=== PATIENT | male | born 1970 | race Hispanic/Latino ===

== ENCOUNTER 2018-06-28 17:14 | Inpatient (IN) | payer MEDICARE, MEDICAID ==
[2018-06-28 17:38] VITALS: BMI 32.2
--- NOTE | 2018-06-28 18:30 | ED PDOC ---
Arrival/HPI - General Historian: Patient <Myrtle Amato - Last Filed: 06/28/18 20:53> <Waqas Hoang - Last Filed: 06/29/18 05:41> - General Chief Complaint: Psychiatric Evaluation Time Seen by Provider: 06/28/18 17:16 - History of Present Illness Narrative History of Present Illness (Text): 06/28/18 18:27 47yr old male with hx of depression and schizophrenia presents today with suicidal ideations. Patient states he has been feeling very depressed for the past few days. Patient states that he is hearing voices that are telling him to take pills to kill himself. Patient states he has been noncompliant with his medications he says his medications make him drowsy and a gives him issues if he over sleeps while in the senior care. Patient denies headaches dizziness or weakness. Denies any trauma or injury. Denies chest pain or shortness of breath. No other complaints. (Myrtle Amato) Past Medical History - Provider Review Nursing Documentation Reviewed: Yes - Travel History Have you recently traveled outside [place] w/in the past 3 mons?: No - Infectious Disease Hx of Infectious Diseases: None - Tetanus Immunization Tetanus Immunization: Unknown - Cardiac Hx Cardiac Arrhythmia: Yes - Pulmonary Hx Bronchitis: Yes - Neurological Hx Seizures: No - HEENT Hx HEENT Disorder: No - Renal Hx Renal Disorder: No - Endocrine/Metabolic Hx Endocrine Disorders: No - Hematological/Oncological Hx Blood Disorders: No - Integumentary Hx Dermatological Disorder: No - Musculoskeletal/Rheumatological Hx Musculoskeletal Disorders: No - Gastrointestinal Hx Gastrointestinal Disorders: No - Genitourinary/Gynecological Hx Sexually Transmitted Diseases: No - Psychiatric Hx Depression: Yes Hx Substance Use: No - Surgical History Other/Comment: jaw surgery 1992 - Anesthesia Hx Anesthesia: No Hx Anesthesia Reactions: No Hx Malignant Hyperthermia: No - Suicidal Assessment Feels Threatened In Home Enviroment: No <Myrtle Amato - Last Filed: 06/28/18 20:53> Family/Social History - Physician Review Nursing Documentation Reviewed: Yes Family/Social History: Unknown Family HX Smoking Status: Heavy Smoker > 10 Cigarettes Daily Hx Alcohol Use: Yes Frequency of alcohol use: Socially Amount per day: 5 Hx Substance Use: No Hx Substance Use Treatment: No <Myrtle Amato - Last Filed: 06/28/18 20:53> Allergies/Home Meds <Myrtle Amato - Last Filed: 06/28/18 20:53> <Waqas Hoang - Last Filed: 06/29/18 05:41> Allergies/Adverse Reactions: Allergies No Known Allergies Allergy (Verified 05/24/18 23:43) Review of Systems - Review of Systems Constitutional: absent: Fatigue, Fevers Respiratory: absent: SOB, Cough Cardiovascular: absent: Chest Pain, Palpitations Gastrointestinal: absent: Abdominal Pain, Nausea, Vomiting Genitourinary Male: absent: Dysuria Musculoskeletal: absent: Arthralgias, Back Pain, Neck Pain Skin: absent: Rash, Pruritis Neurological: absent: Headache, Dizziness Psychiatric: Depression, Suicidal Ideation. absent: Anxiety <Myrtle Amato - Last Filed: 06/28/18 20:53> Physical Exam Vital Signs Reviewed: Yes Temperature: Afebrile Blood Pressure: Normal Pulse: Tachycardic Respiratory Rate: Normal Appearance: Positive for: Well-Appearing, Non-Toxic, Comfortable Pain Distress: None Mental Status: Positive for: Alert and Oriented X 3 - Systems Exam Head: Present: Atraumatic Mouth: Present: Moist Mucous Membranes Neck: Present: Normal Range of Motion Respiratory/Chest: Present: Clear to Auscultation, Good Air Exchange. No: Respiratory Distress, Accessory Muscle Use Cardiovascular: Present: Regular Rate and Rhythm, Normal S1, S2. No: Murmurs Abdomen: No: Tenderness Upper Extremity: Present: Normal ROM Lower Extremity: Present: Normal ROM. No: CALF TENDERNESS Neurological: Present: GCS=15, Speech Normal Skin: Present: Warm, Dry, Normal Color Psychiatric: Present: Alert, Oriented x 3 <Myrtle Amato - Last Filed: 06/28/18 20:53> Vital Signs Temp Pulse Resp BP Pulse Ox 06/29/18 01:52 97.7 F 83 18 130/90 96 06/28/18 19:11 98 F 98 H 18 117/75 100 06/28/18 17:51 98.9 F 111 H 18 121/64 95 Medical Decision Making <Myrtle Amato - Last Filed: 06/28/18 20:53> <Waqas Hoang - Last Filed: 06/29/18 05:41> ED Course and Treatment: 06/28/18 18:30 Patient is nontoxic well-appearing in no distress c/o depression and SI. pt placed on 1;1 CBC WNL CMP glucose; 150 Tylenol WNL Salicylate WNL Alcohol level 86 Urine drug screen: wnl UA; wnl cxr: wnl ekg sinus tachycardia at 107 bpm normal axis normal intervals no ST elevations pt is medically cleared for PES evaluation Patient was seen and evaluated by PES screener: tristian pt reassessment; pt non toxic well appearing; resting comfortably; vitals are stable. In the ER pt is stating that he will kill himself. case signed out to dr. hoang pending psychiatric re-evaluation and disposition. (Myrtle Amato) 06/28/18 21:00 Pt re-evaluated by PES screener Tristian, pt to remain in ER until the morning pending [id number] evaluation by Dr. Tejeda. 06/29/18 07:00 Case endorsed to /pending evaluation by the psychiatrist/final disposition (Waqas Hoang) - Lab Interpretations Lab Results: 06/28/18 18:20 06/28/18 18:20 Lab Results 06/28/18 19:20: Urine Opiates Screen Negative, Urine Methadone Screen Negative, Ur Barbiturates Screen Negative, Ur Phencyclidine Scrn Negative, Ur Amphetamines Screen Negative, U Benzodiazepines Scrn Negative, U Oth Cocaine Metabols Negative, U Cannabinoids Screen Negative 06/28/18 19:20: Urine Color Yellow, Urine Appearance Clear, Urine pH 6.0, Ur Specific [place] 1.020, Urine Protein Negative, Urine Glucose (UA) Negative, Urine Ketones Negative, Urine Blood Negative, Urine Nitrate Negative, Urine Bilirubin Negative, Urine Urobilinogen 0.2, Ur Leukocyte Esterase Negative 06/28/18 18:20: Alcohol, Quantitative 86 H 06/28/18 18:20: Salicylates < 1 L, Acetaminophen < 10.0 L 06/28/18 18:20: Sodium 142, Potassium 3.7, Chloride 107, Carbon Dioxide 23, Anion Gap 16, BUN 12, Creatinine 0.7 L, Est GFR ( Amer) > 60, Est GFR ( Non-Af Amer) > 60, Random Glucose 150 H, Calcium 9.1, Total Bilirubin 0.2, AST 22, ALT 41, Alkaline Phosphatase 43, Total Protein 6.7, Albumin 3.8, Globulin 2.9, Albumin/Globulin Ratio 1.3 06/28/18 18:20: WBC 9.1 D, RBC 4.39, Hgb 14.1, Hct 39.6 L, MCV 90.2, MCH 32.1, MCHC 35.6, RDW 13.0, Plt Count 223, MPV 8.7, Gran % 66.9, Lymph % (Auto) 24.3, [place] % (Auto) 5.3, Eos % (Auto) 2.7, Baso % (Auto) 0.8, Gran # 6.12, Lymph # ( Auto) 2.2, [place] # (Auto) 0.5, Eos # (Auto) 0.3, Baso # (Auto) 0.07 - RAD Interpretation Radiology Orders: 06/28/18 18:18 CHEST PORTABLE [RAD] Stat - PA / AGENT TELEGRAPHER / Resident Statement /DO has reviewed & agrees with the documentation as recorded. / has examined the patient and agrees with the treatment plan. <Waqas Hoang - Last Filed: 06/29/18 05:41> Disposition/Present on Arrival - Present on Arrival Any Indicators Present on Arrival: No History of DVT/PE: No History of Uncontrolled Diabetes: No Urinary Catheter: No History of Decub. Ulcer: No History Surgical Site Infection Following: None <Myrtle Amato - Last Filed: 06/28/18 20:53> - Present on Arrival Any Indicators Present on Arrival: No - Disposition Have Diagnosis and Disposition been Completed?: No Disposition Time: 07:00 <Waqas Hoang - Last Filed: 06/29/18 05:41> - Disposition Diagnosis: Depression Condition: STABLE Referrals: Brenda Dawson [Primary Care Provider] - Follow up with primary Forms: [employer] ([place]an)
[2018-06-28 18:31] LABS: BASO # 0.07 K/mm3 (0.0-2.0); BASO % 0.8 % (0.0-3.0); EOS # 0.3 (0.0-0.7); EOS % 2.7 % (1.5-5.0); GRAN # 6.12 (1.4-6.5); GRAN % 66.9 % (50.0-68.0); HEMOGLOBIN 14.1 g/dL (14.0-18.0); LYMPH # 2.2 (1.2-3.4); LYMPH % 24.3 % (22.0-35.0); MEAN CELL VOLUME 90.2 fl (80.0-105.0); MEAN CORPUSCULAR HEMOGLOBIN 32.1 pg (25.0-35.0); MEAN CORPUSCULAR HGB CONC 35.6 g/dl (31.0-37.0); MEAN PLATELET VOLUME 8.7 fl (7.0-11.0); MONO # 0.5 (0.1-0.6); MONO % 5.3 % (1.0-6.0); RBC 4.39 10^6/uL (3.5-6.1); WHITE BLOOD COUNT 9.1 10^3/ul (4.5-11.0)
[2018-06-28 18:59] LABS: ACETAMINOPHEN < 10.0 ug/ml (10.0-20.0); SALICYLATE < 1 mg/dL (2.0-20.0)
[2018-06-28 19:03] LABS: ALB/GLOB RATIO 1.3 (1.1-1.8); ALBUMIN 3.8 g/dL (3.0-4.8); ALT/SGPT 41 U/L (7-56); AST/SGOT 22 U/L (17-59); BLOOD UREA NITROGEN 12 mg/dL (7-21); CALCIUM 9.1 mg/dL (8.4-10.5); GFR AFRICAN-AMERICAN > 60; GFR NON-AFRICAN AMERICAN > 60
[2018-06-28 19:44] LABS: URINE BILIRUBIN NEGATIVE (NEGATIVE); URINE BLOOD NEGATIVE (NEGATIVE); URINE GLUCOSE (UA) NEGATIVE (NEGATIVE); URINE LEUKOCYTE ESTERASE NEGATIVE Leu/uL (NEGATIVE); URINE PROTEIN NEGATIVE mg/dL (<30 mg/dL); URINE UROBILINOGEN 0.2 E.U./dL (<1 E.U./dL)
[2018-06-28 19:45] LABS: URINE APPEARANCE CLEAR (CLEAR); URINE COLOR YELLOW (YELLOW)
[2018-06-28 20:16] LABS: BARBITURATES, UR NEGATIVE (NEGATIVE); BENZODIAZEPINES, UR NEGATIVE (NEGATIVE); OPIATES, UR NEGATIVE (NEGATIVE); PHENCYCLIDINE, UR NEGATIVE (NEGATIVE)
--- NOTE | 2018-06-29 07:12 | ED PDOC ---
Physical Exam Vital Signs Reviewed: Yes Vital Signs Temp Pulse Resp BP Pulse Ox 06/29/18 04:39 98.2 F 80 18 120/72 98 06/29/18 01:52 97.7 F 83 18 130/90 96 06/28/18 19:11 98 F 98 H 18 117/75 100 06/28/18 17:51 98.9 F 111 H 18 121/64 95 Temperature: Afebrile Blood Pressure: Normal Pulse: Tachycardic Respiratory Rate: Normal Appearance: Positive for: Well-Appearing, Non-Toxic, Comfortable Pain Distress: None Mental Status: Positive for: Alert and Oriented X 3 - Systems Exam Head: Present: Atraumatic, Normocephalic Pupils: Present: PERRL Extroacular Muscles: Present: EOMI Conjunctiva: Present: Normal Neck: Present: Normal Range of Motion Respiratory/Chest: Present: Clear to Auscultation, Good Air Exchange. No: Respiratory Distress, Accessory Muscle Use Cardiovascular: Present: Regular Rate and Rhythm, Normal S1, S2. No: Murmurs Abdomen: No: Tenderness, Distention, Peritoneal Signs Back: Present: Normal Inspection Upper Extremity: Present: Normal Inspection. No: Cyanosis, Edema Lower Extremity: Present: Normal Inspection. No: Edema Neurological: Present: GCS=15, CN II-XII Intact, Speech Normal Skin: Present: Warm, Dry, Normal Color. No: Rashes Psychiatric: Present: Alert, Oriented x 3, Normal Insight, Normal Concentration Medical Decision Making ED Course and Treatment: 06/29/18 07:11 Case endorsed to me by Dr. Porras for pending [id number] evaluation by Dr. Tejeda and final disposition. Patient s a 47 year old male who presented to the Emergency department earlier today expressing suicidal ideation. Patient is currently resting in bed in no acute distress. Patient presents no new complaints. 06/29/18 07:40 Dr. Pack evaluated patient at bedside and believes patient needs admission. Patient will be admitted to the hospital under Dr. Tejeda's service. - Lab Interpretations Lab Results: 06/28/18 18:20 06/28/18 18:20 Lab Results 06/28/18 19:20: Urine Opiates Screen Negative, Urine Methadone Screen Negative, Ur Barbiturates Screen Negative, Ur Phencyclidine Scrn Negative, Ur Amphetamines Screen Negative, U Benzodiazepines Scrn Negative, U Oth Cocaine Metabols Negative, U Cannabinoids Screen Negative 06/28/18 19:20: Urine Color Yellow, Urine Appearance Clear, Urine pH 6.0, Ur Specific [place] 1.020, Urine Protein Negative, Urine Glucose (UA) Negative, Urine Ketones Negative, Urine Blood Negative, Urine Nitrate Negative, Urine Bilirubin Negative, Urine Urobilinogen 0.2, Ur Leukocyte Esterase Negative 06/28/18 18:20: Alcohol, Quantitative 86 H 06/28/18 18:20: Salicylates < 1 L, Acetaminophen < 10.0 L 06/28/18 18:20: Sodium 142, Potassium 3.7, Chloride 107, Carbon Dioxide 23, Anion Gap 16, BUN 12, Creatinine 0.7 L, Est GFR ( Amer) > 60, Est GFR ( Non-Af Amer) > 60, Random Glucose 150 H, Calcium 9.1, Total Bilirubin 0.2, AST 22, ALT 41, Alkaline Phosphatase 43, Total Protein 6.7, Albumin 3.8, Globulin 2.9, Albumin/Globulin Ratio 1.3 06/28/18 18:20: WBC 9.1 D, RBC 4.39, Hgb 14.1, Hct 39.6 L, MCV 90.2, MCH 32.1, MCHC 35.6, RDW 13.0, Plt Count 223, MPV 8.7, Gran % 66.9, Lymph % (Auto) 24.3, [place] % (Auto) 5.3, Eos % (Auto) 2.7, Baso % (Auto) 0.8, Gran # 6.12, Lymph # ( Auto) 2.2, [place] # (Auto) 0.5, Eos # (Auto) 0.3, Baso # (Auto) 0.07 - RAD Interpretation Radiology Orders: 06/28/18 18:18 CHEST PORTABLE [RAD] Stat - Scribe Statement The provider has reviewed the documentation as recorded by the Scribpeggy Raza. All medical record entries made by the Scribe were at my direction and personally dictated by me. I have reviewed the chart and agree that the record accurately reflects my personal performance of the history, physical exam, medical decision making, and the department course for this patient. I have also personally directed, reviewed, and agree with the discharge instructions and disposition. Disposition/Present on Arrival - Present on Arrival Any Indicators Present on Arrival: No History of DVT/PE: No History of Uncontrolled Diabetes: No Urinary Catheter: No History of Decub. Ulcer: No History Surgical Site Infection Following: None - Disposition Have Diagnosis and Disposition been Completed?: Yes Diagnosis: Depression Disposition Time: 04:00 Patient Problems: Current Active Problems Problem Status Onset Depression Acute Condition: STABLE
[2018-06-29 10:05] VITALS: O2SAT 96
[2018-06-29] MEDS ORDERED: Alum-Mag Hydrox-Simethicone Susp (30 mL) PO PRN (11:13)
[2018-06-29] MEDS: buPROPion 150 mg/24 Hours XL Tab PO SCH (12:05)
--- NOTE | 2018-06-29 12:29 | RAD ---
Date of service: 06/28/2018 HISTORY: pes eval COMPARISON: Comparison chest 11/22/2016 FINDINGS: LUNGS: No active pulmonary disease. PLEURA: No significant pleural effusion identified, no pneumothorax apparent. CARDIOVASCULAR: Heart size normal. . OSSEOUS STRUCTURES: No significant abnormalities. VISUALIZED UPPER ABDOMEN: Normal. OTHER FINDINGS: None. IMPRESSION: No active disease.
[2018-06-29] MEDS ORDERED: Magnesium Hydroxide Susp 30 ml UD PO PRN (13:34)
--- NOTE | 2018-06-29 15:56 | PCM.BM ---
<William Garcia - Last Filed: 06/29/18 15:53> Treatment Plan Problems - Problems identified on initial assessmt Medication Nonadherence Date Initiated: 06/29/18 Time Initiated: 12:00 Assessment reference: NA Status: Active Priority: 1 Auditory Hallucinations Date Initiated: 06/29/18 Time Initiated: 12:00 Assessment reference: NA Status: Active Priority: 2 Hopelessness/Helplessness Date Initiated: 06/29/18 Time Initiated: 12:00 Assessment reference: NA Status: Active Priority: 3 Feelings of Worthlessness Date Initiated: 06/29/18 Time Initiated: 12:00 Assessment reference: NA Status: Active Priority: 4 Ineffective Coping Date Initiated: 06/29/18 Time Initiated: 12:00 Assessment reference: NA Status: Active Priority: 5 Treatment assets and liabiliti Patient Assests: cooperative (pt. provided information about his illness.), insightful, ADL independent, physically healthy, negotiates basic needs Patient Liabilities: financial problems, poor support system - Milieu Protocol Maintain good personal hygiene: daily Encourage regular showers, every shift Remind patient to perform daily oral care, every shift Assist patient to perform ADL's Maintain personal safety: every shift Educate patient to report safety concerns to staff, every shift Monitor environment for contraband/sharps Medication safety: Monitor for expected outcome, potential side effects: every shift, Assess barriers to learning: every shift, Assess readiness for medication education: every shift Family Contact Family involvement: Family/SO is involved Family contact: Patient agrees to contact - Goals for Treatment Patient goals for treatment: "Try to get more stabilized and get rid of voices- stable mind with peace. Discharge/Continuing Care - Education Needs Education Needs: Patient Medication, Patient Diagnosis/Disease Process, Patient Coping Skills, Patient Anger Management skills, Patient Placement options, Patient Community resources, Patient Activities of Daily Living, Patient Pain, Patient Nutrition, Patient Uses of Medical Equipment, Patient Health Practices/ Safety, Patient Personal Hygiene/Grooming, Patient Aftercare Safety Plan - Discharge Discharge Criteria: Tolerates medication w/o severe side effects <Keke Pack - Last Filed: 06/30/18 12:21> - Diagnosis (1) Depression Status: Acute Interventions: 06/30/18 12:22 group, milieu and supportive tx * Seroquel 50 increased to 25 for mood control and reported AH * Wellbutrin XL 150 mg daily for depression (2) Schizo-affective psychosis Status: Acute Interventions: group, milieu and supportive tx * Seroquel increased to for mood control and reported AH * Wellbutrin XL 150 mg daily for depression 06/30/18 12:22 <Arlette Patricia - Last Filed: 06/30/18 16:49> Family Contact Family involvement: Famliy/SO not involved <Deanna Stoll - Last Filed: 07/01/18 10:13>
--- NOTE | 2018-06-29 16:22 | CARD ---
APPROVED REPORT Date of service: 06/28/2018 EKG Measurement Heart [id number] <Conclusion> Sinus tachycardia Otherwise normal ECG
--- NOTE | 2018-06-29 18:26 | PCM.FALL ---
<Karan Ribera - Last Filed: 06/29/18 18:23> Post Fall Progress Note - Post Fall Fall Date: 06/29/18 Fall Time: 05:00 Description of Fall: Patient was using restroom when he slipped because of water on the floor from the toilet. Patient fell on buttock, did not hit head. Patient denied any dizziness, or "blacking out" prior to fall or loss of balance. Patient did not have any LOC, focal deficits, chest pain, SOB, or any other complaints. Patient has slight lower back tenderness. He was able to move all extremities without any issues with sensation in tact throughout as well. Patient was also able to have full Range of motion in neck. Patient was able to get up off the floor and lay back in his bed without any issue. - Post Fall Exam Vital Sign: Temp Pulse Resp BP Pulse Ox 98.9 F 84 20 113/68 96 06/29/18 10:15 06/29/18 15:00 06/29/18 15:00 06/29/18 15:00 06/29/18 10:04 Skull Exam: Negative for: Scalp wound, Scalp hematoma, Scalp depression, Ridge in skull Eye Exam: Positive for: Pupils equal, Pupils reactive Ear Exam: Negative for: Discharge, Bleeding Nose Exam: Negative for: Discharge, Bleeding Skin Exam: Negative for: Lacerations, Bruising Mouth Exam: Negative for: Tongue bitten, Teeth dislodge Neck Exam: Negative for: Tenderness, Tingling, Weakness Spinal Exam: Positive for: Tenderness. Negative for: Tingling, Weakness Chest Exam: Negative for: Difficulty breathing Abdomen Exam: Negative for: Tenderness Pelvic Exam: Negative for: Tenderness Arm Exam: Negative for: Deformity Leg Exam: Negative for: Deformity Impression/Plan: Plan -motrin for pain control -xray of lumbar spine -will continue to monitor <Wilmer Padgett - Last Filed: 06/29/18 18:37> Post Fall Progress Note - Post Fall Exam Vital Sign: Temp Pulse Resp BP Pulse Ox 98.9 F 84 20 113/68 96 06/29/18 10:15 06/29/18 15:00 06/29/18 15:00 06/29/18 15:00 06/29/18 10:04 Attending/Attestation - Attestation I have personally seen and examined this patient.: Yes I have fully participated in the care of the patient.: Yes I have reviewed all pertinent clinical information, including history, physical exam and plan: Yes Notes (Text): 06/29/18 18:36 attending note; Patient seen and examined with resident. Status post fall. No obvious injuries. Slight lower back pain. X-ray ordered. Patient is alert and awake. Able to ambulate without difficulty. Nursing staff informed to monitor.
[2018-06-30 07:37] LABS: GLUCOSE,FASTING 99 mg/dL (65-110); HDL CHOLESTEROL 39 mg/dL (29-60)
[2018-06-30 07:48] LABS: LDL CHOLESTEROL 111 mg/dL (0-129)
[2018-06-30 07:54] LABS: FREE T4 0.75 ng/dL (0.78-2.19)
[2018-06-30] MEDS: buPROPion 150 mg/24 Hours XL Tab PO SCH (09:27)
--- NOTE | 2018-06-30 10:37 | RAD ---
Date of service: 06/29/2018 PROCEDURE: Radiographs of the Lumbar Spine. HISTORY: fall COMPARISON: No prior. FINDINGS: BONES: Normal alignment. No listhesis. No fracture. non marginal osteophyte formation identified at L3-4. DISC SPACES: Unremarkable. OTHER FINDINGS: None. IMPRESSION: No significant or acute findings to account for/ related to the clinical presentation. Additional benign and/or incidental findings described above.
--- NOTE | 2018-06-30 12:21 | PCM.PSYCH ---
Initial Psychiatric Evaluation - Initial Psychiatric Evaluation Type of Admission: Voluntary History of Present Illness and Precipitating Events: Patient is a single 47-year-old homeless white male with a history of multiple diagnoses including bipolar disorder, Severe Major Depression with psychotic features, schizoaffective disorder, numerous prior psychiatric admissions most recently at [facility] [place] from May 24 to June 02, 2018, poor compliance with psychiatric outpatient follow-up as well as medications, history of at least two suicide temps, who presented to the ER on June 28, 2018 with symptoms of depression, suicidal thoughts to overdose as well as derogatory CAH telling him to kill himself.. I met with patient in the emergency room and interviewed him at bedside as this morning. He continues to be alert and well oriented to month year location and circumstances. Grooming is adequate and thus far behavior has been in fair control on the unit. Nursing notes indicate that patient has been guarded and withdrawn with poor eye contact. Patient verbalized having intermittent voices telling him to harm himself however never appeared to be responding to internal stimuli or overly distracted or disorganized in this respect. During our 1:1 patient admitted that he only heard voices coming from inside his head---which may not represent true auditory hallucinations Patient reports continued depression, low energy, restless sleep, anhedonia and back ache from his fall yesterday on the unit. A Code Star was called yesterday evening at 5:25 pm because he slipped on toilet overflow water and landed on his lower back. Patient did not hit his head or lose consciousness. Dr. Padgett has been following up with patient diagnostics regarding this incident. Thus far patient has received a dose of Haldol 5 mg for hallucinations and Ativan for subjective feelings of agitation. Patient is tolerating [place] however doesnt feel that current dose is helping with lability, hallucinations or sleep. He is agreeable to increasing dose today. Thus far there have been no major behavioral issues and he is cooperative with recommended treatment interventions. PSYCHIATRIC HISTORY Prior admissions include [facility] [place] May 24 to June 02, 2018. Other [facility] admissions include [facility] November 23 November 26, 2016 as well as [place] 12/18/14-12/22/2014 & December 30 to January 04, 2015 and [facility] September 14 to September 17, 2013 Patient was discharged on the following medications from [facility] [place] on 06/02. Cogentin 1 mg PO BID Neurontin 300 mg PO BID Risperdal 1 mg po bid Zoloft 100 mg daily trazodone 100 mg HS Patient has a history of poor aftercare follow up as well as poor compliance with medications. Other medication trials include Seroquel XR, thorazine and wellbutrin During November 2016 admission at [facility] patient submitted a 48 hour lette. He was evaluated by [facility] screener who determined that patient did not meet criteria for involuntary psychiatric admission. SOCIAL HISTORY Patient was born in [place]. He was raised in [place]. He is single. Hes been in a long-term relationship with his girlfriend for the past 23 years. He has no children. Patient was living in a hotel for approximately 3 years before becoming homeless 1.5 months ago. 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 Prior records the patient indicated patient has been a history of incarceration for theft. . Patient denies having any history of drug or alcohol issues however prior notes indicate that he does have a history of minimizing prior alcohol abuse and has admitted to drinking up to a pint of vodka daily in 2012. Urine drug screen on this admission was negative. Current Medications: Active Medications Generic Name Dose Route Start Last Admin Trade Name Luisq PRN Reason Stop Dose Admin Acetaminophen 650 mg 06/29/18 11:12 06/30/18 09:42 Tylenol 325mg Tab PO 650 mg Q6H PRN Administration Pain, moderate (4-7) Al Hydrox/Mg Hydrox/Simethicone 30 ml 06/29/18 11:13 Maalox Plus 30 Ml PO DAILY PRN Indigestion / Heartburn Bupropion HCl 150 mg 06/29/18 12:00 06/30/18 09:27 Wellbutrin Xl PO 150 mg DAILY JACK Administration Haloperidol 5 mg 06/29/18 13:31 06/29/18 21:42 Haldol PO 5 mg Q6H PRN Administration Agitation Protocol Haloperidol Lactate 5 mg 06/29/18 13:32 Haldol IM Q6H PRN Severe Agitation Protocol Lorazepam 2 mg 06/29/18 11:44 06/29/18 21:41 Ativan PO 2 mg Q6H PRN Administration Agitation Protocol Lorazepam 2 mg 06/29/18 11:47 Ativan IM Q6H PRN Severe Agitation Protocol Magnesium Hydroxide 30 ml 06/29/18 13:34 Milk Of Magnesia PO DAILY PRN Constipation Quetiapine Fumarate 25 mg 06/29/18 11:45 06/30/18 09:26 Seroquel PO 25 mg BID JACK Administration Protocol Quetiapine Fumarate 50 mg 06/29/18 22:00 06/29/18 21:41 Seroquel PO 50 mg HS JACK Administration Protocol Quetiapine Fumarate 50 mg 06/29/18 11:54 Seroquel PO HS PRN SEE DOSE INSTRUCTION Protocol Past Psychiatric History - Past Psychiatric History Pertinent Medical Hx (Current Medical&Sleep Prob, Allergies): Allergies Allergy/AdvReac Type Severity Reaction Status Date / Time No Known Allergies Allergy Verified 06/29/18 15:08 Benztropine [Cogentin] 1 mg PO BID #60 tab 06/02/18 Gabapentin [Neurontin] 300 mg PO BID #60 cap 06/02/18 Sertraline [Zoloft] 100 mg PO DAILY #30 tab 06/02/18 risperiDONE [RisperDAL Tab] 2 mg PO BID #60 tab 06/02/18 traZODone [Desyrel] 100 mg PO HS #30 tab 06/02/18 Mental Status Examination - Personal Presentation Personal Presentation: Looks stated age - Affect Affect: Constricted - Motor Activity Motor Activity: Calm - Reliability in Providing Information Reliability in Providing Information: Fair - Speech Speech: Organized - Mood Mood: Depressed, Anxious - Formal Thought Process Formal Thought Process: Hallucinations (auditory derogatory hallucinations telling him to kill himself) - Obsessions/Compulsions Obsessions: No Compulsions: No - Cognitive Functions Orientation: Person, Place, Situation Sensorium: Alert Attention/Concentration: Attentive Estimate of Intelligence: Average Judgement: Imparied, as evidence by: Poor judgement, Imparied, as evidence by: Lack of insight into illness - Risk Risk: Suicidal DSM 5 DX - DSM 5 DSM 5 Diagnosis: Mood Disorder NOS Psychosis NOS r/o MDD severe with psychotic features r/o Schizoaffective Disorder by hx - Recommended/Plan of Treatment Treatment Recommendations and Plan of Treatment: * group, milieu and supportive tx * Seroquel /50 increased to 25//100 for mood control and reported AH * Wellbutrin XL 150 mg daily for depression * Appreciate f/u by Dr. Padgett ~Patient seen and examined with resident. Status post fall. No obvious injuries. Slight lower back pain. X-ray ordered. Patient is alert and awake. Able to ambulate without difficulty.Nursing staff informed to monitor. * Vitals reviewed and noted below: Selected Entries 06/30/18 07:00 Temperature 97.8 F Pulse Rate 81 Respiratory 20 Rate Blood Pressure 142/97 H * Admission labs noted below: Laboratory Tests 06/28/18 06/28/18 06/28/18 18:20 18:20 18:20 WBC 9.1 D RBC 4.39 Hgb 14.1 Hct 39.6 L MCV 90.2 MCH 32.1 MCHC 35.6 RDW 13.0 Plt Count 223 MPV 8.7 Gran % 66.9 Lymph % (Auto) 24.3 [place] % (Auto) 5.3 Eos % (Auto) 2.7 Baso % (Auto) 0.8 Gran # 6.12 Lymph # (Auto) 2.2 [place] # (Auto) 0.5 Eos # (Auto) 0.3 Baso # (Auto) 0.07 Sodium 142 Potassium 3.7 Chloride 107 Carbon Dioxide 23 Anion Gap 16 BUN 12 Creatinine 0.7 L Est GFR ( Amer) > 60 Est GFR (Non-Af Amer) > 60 POC Glucose (mg/dL) Random Glucose 150 H Fasting Glucose Calcium 9.1 Total Bilirubin 0.2 AST 22 ALT 41 Alkaline Phosphatase 43 Total Protein 6.7 Albumin 3.8 Globulin 2.9 Albumin/Globulin Ratio 1.3 Triglycerides Cholesterol LDL Cholesterol Direct HDL Cholesterol Free T4 TSH 3rd Generation Urine Color Urine Appearance Urine pH Ur Specific [place] Urine Protein Urine Glucose (UA) Urine Ketones Urine Blood Urine Nitrate Urine Bilirubin Urine Urobilinogen Ur Leukocyte Esterase Salicylates < 1 L Urine Opiates Screen Urine Methadone Screen Acetaminophen < 10.0 L Ur Barbiturates Screen Ur Phencyclidine Scrn Ur Amphetamines Screen U Benzodiazepines Scrn U Oth Cocaine Metabols U Cannabinoids Screen Alcohol, Quantitative 06/28/18 06/28/18 06/28/18 18:20 19:20 19:20 WBC RBC Hgb Hct MCV MCH MCHC RDW Plt Count MPV Gran % Lymph % (Auto) [place] % (Auto) Eos % (Auto) Baso % (Auto) Gran # Lymph # (Auto) [place] # (Auto) Eos # (Auto) Baso # (Auto) Sodium Potassium Chloride Carbon Dioxide Anion Gap BUN Creatinine Est GFR ( Amer) Est GFR (Non-Af Amer) POC Glucose (mg/dL) Random Glucose Fasting Glucose Calcium Total Bilirubin AST ALT Alkaline Phosphatase Total Protein Albumin Globulin Albumin/Globulin Ratio Triglycerides Cholesterol LDL Cholesterol Direct HDL Cholesterol Free T4 TSH 3rd Generation Urine Color Yellow Urine Appearance Clear Urine pH 6.0 Ur Specific [place] 1.020 Urine Protein Negative Urine Glucose (UA) Negative Urine Ketones Negative Urine Blood Negative Urine Nitrate Negative Urine Bilirubin Negative Urine Urobilinogen 0.2 Ur Leukocyte Esterase Negative Salicylates Urine Opiates Screen Negative Urine Methadone Screen Negative Acetaminophen Ur Barbiturates Screen Negative Ur Phencyclidine Scrn Negative Ur Amphetamines Screen Negative U Benzodiazepines Scrn Negative U Oth Cocaine Metabols Negative U Cannabinoids Screen Negative Alcohol, Quantitative 86 H 06/29/18 06/30/18 06/30/18 17:28 07:15 07:15 WBC RBC Hgb Hct MCV MCH MCHC RDW Plt Count MPV Gran % Lymph % (Auto) [place] % (Auto) Eos % (Auto) Baso % (Auto) Gran # Lymph # (Auto) [place] # (Auto) Eos # (Auto) Baso # (Auto) Sodium Potassium Chloride Carbon Dioxide Anion Gap BUN Creatinine Est GFR ( Amer) Est GFR (Non-Af Amer) POC Glucose (mg/dL) 110 Random Glucose Fasting Glucose 99 Calcium Total Bilirubin AST ALT Alkaline Phosphatase Total Protein Albumin Globulin Albumin/Globulin Ratio Triglycerides 313 H Cholesterol 197 LDL Cholesterol Direct 111 HDL Cholesterol 39 Free T4 0.75 L TSH 3rd Generation 2.61 Urine Color Urine Appearance Urine pH Ur Specific [place] Urine Protein Urine Glucose (UA) Urine Ketones Urine Blood Urine Nitrate Urine Bilirubin Urine Urobilinogen Ur Leukocyte Esterase Salicylates Urine Opiates Screen Urine Methadone Screen Acetaminophen Ur Barbiturates Screen Ur Phencyclidine Scrn Ur Amphetamines Screen U Benzodiazepines Scrn U Oth Cocaine Metabols U Cannabinoids Screen Alcohol, Quantitative
[2018-07-01] MEDS: buPROPion 150 mg/24 Hours XL Tab PO SCH (08:31)
--- NOTE | 2018-07-01 11:00 | PCM.PYCHPN ---
Psychiatric Progress Note - Psychiatric Progress Note Patient seen today, length of contact: 25 min Problems Identified/Issues Discussed: History of Present Illness and Precipitating Events: Patient is a single 47-year-old homeless white male with a history of multiple diagnoses including bipolar disorder, Severe Major Depression with psychotic features, schizoaffective disorder, numerous prior psychiatric admissions most recently at [facility] from May 24 to June 02, 2018, poor compliance with psychiatric outpatient follow-up as well as medications, history of at least two suicide temps, who presented to the ER on June 28, 2018 with symptoms of depression, suicidal thoughts to overdose as well as derogatory CAH telling him to kill himself.. I met with patient in the emergency room and interviewed him at bedside as this morning. He continues to be alert and well oriented to year location and circumstances. Grooming is adequate and thus far behavior has been in fair control on the unit. Nursing notes indicate that patient has been guarded and withdrawn with poor eye contact. Patient verbalized having intermittent voices telling him to harm himself however never appeared to be responding to internal stimuli or overly distracted or disorganized in this respect. During our 1:1 patient admitted that he only heard voices coming from inside his head---which may not represent true auditory hallucinations Patient reports continued depression, low energy, restless sleep, anhedonia and back ache from his fall yesterday on the unit. A Code Star was called yesterday evening at 5:25 pm because he slipped on toilet overflow water and landed on his lower back. Patient did not hit his head or lose consciousness. Dr. Padgett has been following up with patient diagnostics regarding this incident. Thus far patient has received a dose of Haldol 5 mg for hallucinations and Ativan for subjective feelings of agitation. Patient is tolerating [place] however doesnt feel that current dose is helping with lability, hallucinations or sleep. He is agreeable to increasing dose today. Thus far there have been no major behavioral issues and he is cooperative with recommended treatment interventions. PSYCHIATRIC HISTORY Prior admissions include [facility] May 24 to June 02, 2018. Other [facility] admissions include [facility] November 23 November 26, 2016 as well as [place] 12/18/14-12/22/2014 & December 30 to January 04, 2015 and [facility] September 14 to September 17, 2013 Patient was discharged on the following medications from [facility] on 06/02. Cogentin 1 mg PO BID Neurontin 300 mg PO BID Risperdal 1 mg po bid Zoloft 100 mg daily trazodone 100 mg HS Patient has a history of poor aftercare follow up as well as poor compliance with medications. Other medication trials include Seroquel XR, thorazine and wellbutrin During November 2016 admission at [facility] patient submitted a 48 hour lette. He was evaluated by [facility] screener who determined that patient did not meet criteria for involuntary psychiatric admission. SOCIAL HISTORY Patient was born in [place]. He was raised in [place]. He is single. Hes been in a long-term relationship with his girlfriend for the past 23 years. He has no children. Patient was living in a hotel for approximately 3 years before becoming homeless 1.5 months ago. 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 Prior records the patient indicated patient has been a history of incarceration for theft. . Patient denies having any history of drug or alcohol issues however prior notes indicate that he does have a history of minimizing prior alcohol abuse and has admitted to drinking up to a pint of vodka daily in 2012. Urine drug screen on this admission was negative. Progress Note 07/01/18 Patient was interviewed at bedside. He is oriented x3, and superficially cooperative. He denies having any new concerns. He still feels depressed but has been getting better. Hallucinations are "better" and he denies any current perceptual disturbance. Affect remains constricted and thought process has always been organized. He denies having any thoughts to harm himself or others. Patient is tolerating current medications. Seroquel has been beneficial at current dose thus far and he defers on any new medication changes at this time. Patient indicates awareness that he has been isolative on the unit. He reports that he will try to be more visible and attend groups. He denies any current new discomfort or pain. Back pain is improving. He doesn' t appear to be in any physical distress during our interview. Behavior is becoming a little more predictable. Diagnostic Results: Mood Disorder NOS Psychosis NOS r/o MDD severe with psychotic features r/o Schizoaffective Disorder by Mental Status Examination - Cognitive Function Orientation: Person, Place, Situation Attention: WNL Concentration: Poor Association: Loose Fund of Knowledge: Poor - Mood Mood: Depressed, Anxious - Affect Affect: Constricted - Speech Speech: Soft - Formal Thought Process Formal Thought Process: Hallucinations (Continued auditory derogatory hallucinations telling him to kill himself NOT RESPONDING TO INTERNAL STIMULI) - Homicidal Ideation Homicidal Ideation: No Goal/Treatment Plan - Goal/Treatment Plan Progress Toward Problem(s) and Goals/Treatment Plan: * group, milieu and supportive tx * Seroquel 25/50 increased to 25//100 for mood control and reported AH on 06/30/18 * Wellbutrin XL 150 mg daily for depression * Appreciate f/u by Dr. Padgett on 06/29/18 ~Patient seen and examined with resident. Status post fall. No obvious injuries. Slight lower back pain. X-ray ordered. Patient is alert and awake. Able to ambulate without difficulty.Nursing staff informed to monitor. LUMBAR SPINE XRAY RESULTS Normal alignment of bones. No listhesis. No fracture. Non marginal osteophyte formation identified at L3-4. Impression: No significant or acute findings to account for/related to the clinical presentation. Additional benign and/or incidental findings described above * Vitals reviewed and noted below: Selected Entries 07/01/18 07:04 Temperature 98 F Pulse Rate 89 Respiratory 21 Rate Blood Pressure 135/75 * Admission labs noted below: 06/30/18 06/30/18 07:15 07:15 Fasting Glucose 99 Triglycerides 313 H Cholesterol 197 LDL Cholesterol Direct 111 HDL Cholesterol 39 Free T4 0.75 L TSH 3rd Generation 2.61 Laboratory Tests 06/28/18 06/28/18 06/28/18 18:20 18:20 18:20 WBC 9.1 D RBC 4.39 Hgb 14.1 Hct 39.6 L MCV 90.2 MCH 32.1 MCHC 35.6 RDW 13.0 Plt Count 223 MPV 8.7 Gran % 66.9 Lymph % (Auto) 24.3 [place] % (Auto) 5.3 Eos % (Auto) 2.7 Baso % (Auto) 0.8 Gran # 6.12 Lymph # (Auto) 2.2 [place] # (Auto) 0.5 Eos # (Auto) 0.3 Baso # (Auto) 0.07 Sodium 142 Potassium 3.7 Chloride 107 Carbon Dioxide 23 Anion Gap 16 BUN 12 Creatinine 0.7 L Est GFR ( Amer) > 60 Est GFR (Non-Af Amer) > 60 POC Glucose (mg/dL) Random Glucose 150 H Fasting Glucose Calcium 9.1 Total Bilirubin 0.2 AST 22 ALT 41 Alkaline Phosphatase 43 Total Protein 6.7 Albumin 3.8 Globulin 2.9 Albumin/Globulin Ratio 1.3 Triglycerides Cholesterol LDL Cholesterol Direct HDL Cholesterol Free T4 TSH 3rd Generation Urine Color Urine Appearance Urine pH Ur Specific [place] Urine Protein Urine Glucose (UA) Urine Ketones Urine Blood Urine Nitrate Urine Bilirubin Urine Urobilinogen Ur Leukocyte Esterase Salicylates < 1 L Urine Opiates Screen Urine Methadone Screen Acetaminophen < 10.0 L Ur Barbiturates Screen Ur Phencyclidine Scrn Ur Amphetamines Screen U Benzodiazepines Scrn U Oth Cocaine Metabols U Cannabinoids Screen Alcohol, Quantitative 06/28/18 06/28/18 06/28/18 18:20 19:20 19:20 WBC RBC Hgb Hct MCV MCH MCHC RDW Plt Count MPV Gran % Lymph % (Auto) [place] % (Auto) Eos % (Auto) Baso % (Auto) Gran # Lymph # (Auto) [place] # (Auto) Eos # (Auto) Baso # (Auto) Sodium Potassium Chloride Carbon Dioxide Anion Gap BUN Creatinine Est GFR ( Amer) Est GFR (Non-Af Amer) POC Glucose (mg/dL) Random Glucose Fasting Glucose Calcium Total Bilirubin AST ALT Alkaline Phosphatase Total Protein Albumin Globulin Albumin/Globulin Ratio Triglycerides Cholesterol LDL Cholesterol Direct HDL Cholesterol Free T4 TSH 3rd Generation Urine Color Yellow Urine Appearance Clear Urine pH 6.0 Ur Specific [place] 1.020 Urine Protein Negative Urine Glucose (UA) Negative Urine Ketones Negative Urine Blood Negative Urine Nitrate Negative Urine Bilirubin Negative Urine Urobilinogen 0.2 Ur Leukocyte Esterase Negative Salicylates Urine Opiates Screen Negative Urine Methadone Screen Negative Acetaminophen Ur Barbiturates Screen Negative Ur Phencyclidine Scrn Negative Ur Amphetamines Screen Negative U Benzodiazepines Scrn Negative U Oth Cocaine Metabols Negative U Cannabinoids Screen Negative Alcohol, Quantitative 86 H 06/29/18 06/30/18 06/30/18 17:28 07:15 07:15 WBC RBC Hgb Hct MCV MCH MCHC RDW Plt Count MPV Gran % Lymph % (Auto) [place] % (Auto) Eos % (Auto) Baso % (Auto) Gran # Lymph # (Auto) [place] # (Auto) Eos # (Auto) Baso # (Auto) Sodium Potassium Chloride Carbon Dioxide Anion Gap BUN Creatinine Est GFR ( Amer) Est GFR (Non-Af Amer) POC Glucose (mg/dL) 110 Random Glucose Fasting Glucose 99 Calcium Total Bilirubin AST ALT Alkaline Phosphatase Total Protein Albumin Globulin Albumin/Globulin Ratio Triglycerides 313 H Cholesterol 197 LDL Cholesterol Direct 111 HDL Cholesterol 39 Free T4 0.75 L TSH 3rd Generation 2.61 Urine Color Urine Appearance Urine pH Ur Specific [place] Urine Protein Urine Glucose (UA) Urine Ketones Urine Blood Urine Nitrate Urine Bilirubin Urine Urobilinogen Ur Leukocyte Esterase Salicylates Urine Opiates Screen Urine Methadone Screen Acetaminophen Ur Barbiturates Screen Ur Phencyclidine Scrn Ur Amphetamines Screen U Benzodiazepines Scrn U Oth Cocaine Metabols U Cannabinoids Screen Alcohol, Quantitative
[2018-07-02] MEDS: buPROPion 150 mg/24 Hours XL Tab PO SCH (09:40)
--- NOTE | 2018-07-02 10:40 | PCM.PYCHPN ---
Psychiatric Progress Note - Psychiatric Progress Note Patient seen today, length of contact: 25 min Problems Identified/Issues Discussed: History of Present Illness and Precipitating Events: Patient is a single 47-year-old homeless white male with a history of multiple diagnoses including bipolar disorder, Severe Major Depression with psychotic features, schizoaffective disorder, numerous prior psychiatric admissions most recently at [facility] from May 24 to June 02, 2018, poor compliance with psychiatric outpatient follow-up as well as medications, history of at least two suicide temps, who presented to the ER on June 28, 2018 with symptoms of depression, suicidal thoughts to overdose as well as derogatory CAH telling him to kill himself.. I met with patient in the emergency room and interviewed him at bedside as this morning. He continues to be alert and well oriented to year location and circumstances. Grooming is adequate and thus far behavior has been in fair control on the unit. Nursing notes indicate that patient has been guarded and withdrawn with poor eye contact. Patient verbalized having intermittent voices telling him to harm himself however never appeared to be responding to internal stimuli or overly distracted or disorganized in this respect. During our 1:1 patient admitted that he only heard voices coming from inside his head---which may not represent true auditory hallucinations Patient reports continued depression, low energy, restless sleep, anhedonia and back ache from his fall yesterday on the unit. A Code Star was called yesterday evening at 5:25 pm because he slipped on toilet overflow water and landed on his lower back. Patient did not hit his head or lose consciousness. Dr. Padgett has been following up with patient diagnostics regarding this incident. Thus far patient has received a dose of Haldol 5 mg for hallucinations and Ativan for subjective feelings of agitation. Patient is tolerating [place] however doesnt feel that current dose is helping with lability, hallucinations or sleep. He is agreeable to increasing dose today. Thus far there have been no major behavioral issues and he is cooperative with recommended treatment interventions. PSYCHIATRIC HISTORY Prior admissions include [facility] May 24 to June 02, 2018. Other [facility] admissions include [facility] November 23 November 26, 2016 as well as [place] 12/18/14-12/22/2014 & December 30 to January 04, 2015 and [facility] September 14 to September 17, 2013 Patient was discharged on the following medications from [facility] on 06/02. Cogentin 1 mg PO BID Neurontin 300 mg PO BID Risperdal 1 mg po bid Zoloft 100 mg daily trazodone 100 mg HS Patient has a history of poor aftercare follow up as well as poor compliance with medications. Other medication trials include Seroquel XR, thorazine and wellbutrin During November 2016 admission at [facility] patient submitted a 48 hour lette. He was evaluated by [facility] screener who determined that patient did not meet criteria for involuntary psychiatric admission. SOCIAL HISTORY Patient was born in [place]. He was raised in [place]. He is single. Hes been in a long-term relationship with his girlfriend for the past 23 years. He has no children. Patient was living in a hotel for approximately 3 years before becoming homeless 1.5 months ago. 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 Prior records the patient indicated patient has been a history of incarceration for theft. . Patient denies having any history of drug or alcohol issues however prior notes indicate that he does have a history of minimizing prior alcohol abuse and has admitted to drinking up to a pint of vodka daily in 2012. Urine drug screen on this admission was negative. Progress Note 07/01/18 Patient was interviewed at bedside. He is oriented x3, and superficially cooperative. He denies having any new concerns. Patient reports that he still feels very depressed but has been getting better in that his sleep is a little less restless. Patient reports distress because derogatory hallucinations telling him to kill himself persist. He has been isolative though aware this provider encouraged him to participate on the unit. Patient tries to stay away from others on the unit and continues to feel very byrd. . Patient is tolerating current medications. Seroquel has been beneficial at current dose to help him sleep however he requests further increase to help with the voices. He seems preoccupied today but not noted to be responding to internal stimuli. He denies any current new discomfort or pain. Back pain is improving. He doesn' t appear to be in any physical distress during our interview. Diagnostic Results: Mood Disorder NOS Psychosis NOS r/o MDD severe with psychotic features r/o Schizoaffective Disorder by hx Medication Change: Yes (Increase Seroquel) Medical Record Reviewed: Yes Mental Status Examination - Cognitive Function Orientation: Person, Place, Situation Attention: WNL Concentration: Poor Association: Loose Fund of Knowledge: Poor - Mood Mood: Depressed, Anxious - Affect Affect: Constricted, Flat - Speech Speech: Soft - Formal Thought Process Formal Thought Process: Hallucinations (Continued auditory derogatory hallucinations telling him to kill himself) - Homicidal Ideation Homicidal Ideation: No Goal/Treatment Plan - Goal/Treatment Plan Progress Toward Problem(s) and Goals/Treatment Plan: * group, milieu and supportive tx * Seroquel /50 increased to 25/25/100 for mood control and reported AH on and then again to 25//125 for continued lability and AH on 07/02/18 * Wellbutrin XL 150 mg daily for depression * Appreciate f/u by Dr. Padgett on 06/29/18 ~Patient seen and examined with resident. Status post fall. No obvious injuries. Slight lower back pain. X-ray ordered. Patient is alert and awake. Able to ambulate without difficulty.Nursing staff informed to monitor. LUMBAR SPINE XRAY RESULTS 06/29/18 Normal alignment of bones. No listhesis. No fracture. Non marginal osteophyte formation identified at L3-4. Impression: No significant or acute findings to account for/related to the clinical presentation. Additional benign and/or incidental findings described above * Vitals reviewed and noted below: Selected Entries 07/01/18 07/01/18 07:04 16:00 Temperature 98 F Pulse Rate 89 88 Respiratory 21 Rate Blood Pressure 135/75 140/83 * Admission labs noted below: 06/30/18 06/30/18 07:15 07:15 Fasting Glucose 99 Triglycerides 313 H Cholesterol 197 LDL Cholesterol Direct 111 HDL Cholesterol 39 Free T4 0.75 L TSH 3rd Generation 2.61 Laboratory Tests 06/28/18 06/28/18 06/28/18 18:20 18:20 18:20 WBC 9.1 D RBC 4.39 Hgb 14.1 Hct 39.6 L MCV 90.2 MCH 32.1 MCHC 35.6 RDW 13.0 Plt Count 223 MPV 8.7 Gran % 66.9 Lymph % (Auto) 24.3 Mcpherson % (Auto) 5.3 Eos % (Auto) 2.7 Baso % (Auto) 0.8 Gran # 6.12 Lymph # (Auto) 2.2 Mcpherson # (Auto) 0.5 Eos # (Auto) 0.3 Baso # (Auto) 0.07 Sodium 142 Potassium 3.7 Chloride 107 Carbon Dioxide 23 Anion Gap 16 BUN 12 Creatinine 0.7 L Est GFR ( Amer) > 60 Est GFR (Non-Af Amer) > 60 POC Glucose (mg/dL) Random Glucose 150 H Fasting Glucose Calcium 9.1 Total Bilirubin 0.2 AST 22 ALT 41 Alkaline Phosphatase 43 Total Protein 6.7 Albumin 3.8 Globulin 2.9 Albumin/Globulin Ratio 1.3 Triglycerides Cholesterol LDL Cholesterol Direct HDL Cholesterol Free T4 TSH 3rd Generation Urine Color Urine Appearance Urine pH Ur Specific [place] Urine Protein Urine Glucose (UA) Urine Ketones Urine Blood Urine Nitrate Urine Bilirubin Urine Urobilinogen Ur Leukocyte Esterase Salicylates < 1 L Urine Opiates Screen Urine Methadone Screen Acetaminophen < 10.0 L Ur Barbiturates Screen Ur Phencyclidine Scrn Ur Amphetamines Screen U Benzodiazepines Scrn U Oth Cocaine Metabols U Cannabinoids Screen Alcohol, Quantitative 06/28/18 06/28/18 06/28/18 18:20 19:20 19:20 WBC RBC Hgb Hct MCV MCH MCHC RDW Plt Count MPV Gran % Lymph % (Auto) Mcpherson % (Auto) Eos % (Auto) Baso % (Auto) Gran # Lymph # (Auto) Mcpherson # (Auto) Eos # (Auto) Baso # (Auto) Sodium Potassium Chloride Carbon Dioxide Anion Gap BUN Creatinine Est GFR ( Amer) Est GFR (Non-Af Amer) POC Glucose (mg/dL) Random Glucose Fasting Glucose Calcium Total Bilirubin AST ALT Alkaline Phosphatase Total Protein Albumin Globulin Albumin/Globulin Ratio Triglycerides Cholesterol LDL Cholesterol Direct HDL Cholesterol Free T4 TSH 3rd Generation Urine Color Yellow Urine Appearance Clear Urine pH 6.0 Ur Specific [place] 1.020 Urine Protein Negative Urine Glucose (UA) Negative Urine Ketones Negative Urine Blood Negative Urine Nitrate Negative Urine Bilirubin Negative Urine Urobilinogen 0.2 Ur Leukocyte Esterase Negative Salicylates Urine Opiates Screen Negative Urine Methadone Screen Negative Acetaminophen Ur Barbiturates Screen Negative Ur Phencyclidine Scrn Negative Ur Amphetamines Screen Negative U Benzodiazepines Scrn Negative U Oth Cocaine Metabols Negative U Cannabinoids Screen Negative Alcohol, Quantitative 86 H 06/29/18 06/30/18 06/30/18 17:28 07:15 07:15 WBC RBC Hgb Hct MCV MCH MCHC RDW Plt Count MPV Gran % Lymph % (Auto) Mcpherson % (Auto) Eos % (Auto) Baso % (Auto) Gran # Lymph # (Auto) Mcpherson # (Auto) Eos # (Auto) Baso # (Auto) Sodium Potassium Chloride Carbon Dioxide Anion Gap BUN Creatinine Est GFR ( Amer) Est GFR (Non-Af Amer) POC Glucose (mg/dL) 110 Random Glucose Fasting Glucose 99 Calcium Total Bilirubin AST ALT Alkaline Phosphatase Total Protein Albumin Globulin Albumin/Globulin Ratio Triglycerides 313 H Cholesterol 197 LDL Cholesterol Direct 111 HDL Cholesterol 39 Free T4 0.75 L TSH 3rd Generation 2.61 Urine Color Urine Appearance Urine pH Ur Specific [place] Urine Protein Urine Glucose (UA) Urine Ketones Urine Blood Urine Nitrate Urine Bilirubin Urine Urobilinogen Ur Leukocyte Esterase Salicylates Urine Opiates Screen Urine Methadone Screen Acetaminophen Ur Barbiturates Screen Ur Phencyclidine Scrn Ur Amphetamines Screen U Benzodiazepines Scrn U Oth Cocaine Metabols U Cannabinoids Screen Alcohol, Quantitative
[2018-07-03] MEDS: buPROPion 150 mg/24 Hours XL Tab PO SCH (08:40)
--- NOTE | 2018-07-03 10:47 | PCM.PYCHPN ---
Psychiatric Progress Note - Psychiatric Progress Note Patient seen today, length of contact: 25 min Patient Chief Complaint: depressed and hopeless Problems Identified/Issues Discussed: History of Present Illness and Precipitating Events: Patient is a single 47-year-old homeless white male with a history of multiple diagnoses including bipolar disorder, Severe Major Depression with psychotic features, schizoaffective disorder, numerous prior psychiatric admissions most recently at [facility] from May 24 to June 02, 2018, poor compliance with psychiatric outpatient follow-up as well as medications, history of at least two suicide temps, who presented to the ER on June 28, 2018 with symptoms of depression, suicidal thoughts to overdose as well as derogatory CAH telling him to kill himself.. I met with patient in the emergency room and interviewed him at bedside as this morning. He continues to be alert and well oriented to year location and circumstances. Grooming is adequate and thus far behavior has been in fair control on the unit. Nursing notes indicate that patient has been guarded and withdrawn with poor eye contact. Patient verbalized having intermittent voices telling him to harm himself however never appeared to be responding to internal stimuli or overly distracted or disorganized in this respect. During our 1:1 patient admitted that he only heard voices coming from inside his head---which may not represent true auditory hallucinations Patient reports continued depression, low energy, restless sleep, anhedonia and back ache from his fall yesterday on the unit. A Code Star was called yesterday evening at 5:25 pm because he slipped on toilet overflow water and landed on his lower back. Patient did not hit his head or lose consciousness. Dr. Padgett has been following up with patient diagnostics regarding this incident. Thus far patient has received a dose of Haldol 5 mg for hallucinations and Ativan for subjective feelings of agitation. Patient is tolerating [place] however doesnt feel that current dose is helping with lability, hallucinations or sleep. He is agreeable to increasing dose today. Thus far there have been no major behavioral issues and he is cooperative with recommended treatment interventions. PSYCHIATRIC HISTORY Prior admissions include [facility] May 24 to June 02, 2018. Other [facility] include [facility] November 23 November 26, 2016 as well as [place] 12/18/14-12/22/2014 & December 30 to January 04, 2015 and [facility] September 14 to September 17, 2013 Patient was discharged on the following medications from [facility] on 06/02. Cogentin 1 mg PO BID Neurontin 300 mg PO BID Risperdal 1 mg po bid Zoloft 100 mg daily trazodone 100 mg HS Patient has a history of poor aftercare follow up as well as poor compliance with medications. Other medication trials include Seroquel XR, thorazine and wellbutrin During November 2016 admission at [facility] patient submitted a 48 hour lette. He was evaluated by [facility] screener who determined that patient did not meet criteria for involuntary psychiatric admission. SOCIAL HISTORY Patient was born in [place]. He was raised in [place]. He is single. Hes been in a long-term relationship with his girlfriend for the past 23 years. He has no children. Patient was living in a hotel for approximately 3 years before becoming homeless 1.5 months ago. 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 Prior records the patient indicated patient has been a history of incarceration for theft. . Patient denies having any history of drug or alcohol issues however prior notes indicate that he does have a history of minimizing prior alcohol abuse and has admitted to drinking up to a pint of vodka daily in 2012. Urine drug screen on this admission was negative. Progress Note 07/03/18 Patient was interviewed at bedside. He is oriented x3, and superficially cooperative. He reports that he continues to be depressed and feels hopeless. He isn't suicidal but the auditory hallucinations continue to distress him. He reports having derogatory hallucinations telling him to kill himself throughout the day--this is something he doesn't want to do. Affect continues to be constricted, preoccupied and guarded. He has been isolative and vegetative. Continues to avoid other people because of his irritability and tendency to get overwhelmed easily. Patient is tolerating current medications. Seroquel has been beneficial at current dose to help him sleep however he requests further increase to help with the voices. He has note been observed responding to internal stimuli. He denies any current new discomfort or pain. Back pain is improving. He doesn' t appear to be in any physical distress during our interview. Diagnostic Results: Mood Disorder NOS Psychosis NOS r/o MDD severe with psychotic features r/o Schizoaffective Disorder by hx Medication Change: Yes (Increased Seroquel to 25/25/175) Medical Record Reviewed: Yes Mental Status Examination - Cognitive Function Orientation: Person, Place, Situation Attention: WNL Concentration: Poor Association: Loose Fund of Knowledge: Poor - Mood Mood: Depressed, Anxious - Affect Affect: Constricted - Speech Speech: Soft - Formal Thought Process Formal Thought Process: Hallucinations (Continued auditory derogatory hallucinations telling him to kill himself) - Homicidal Ideation Homicidal Ideation: No Goal/Treatment Plan - Goal/Treatment Plan Progress Toward Problem(s) and Goals/Treatment Plan: * group, milieu and supportive tx * Seroquel /50 increased to 25/25/100 for mood control and reported AH on and then again to 25/25/125 for continued lability and AH on 07/02/18. Seroquel increased further more to 25/25/175 on 07/03/18 for continued hallucinations and lability * Wellbutrin XL 150 mg daily for depression * Appreciate f/u by Dr. Padgett on 06/29/18 ~Patient seen and examined with resident. Status post fall. No obvious injuries. Slight lower back pain. X-ray ordered. Patient is alert and awake. Able to ambulate without difficulty.Nursing staff informed to monitor. LUMBAR SPINE XRAY RESULTS 06/29/18 Normal alignment of bones. No listhesis. No fracture. Non marginal osteophyte formation identified at L3-4. Impression: No significant or acute findings to account for/related to the clinical presentation. Additional benign and/or incidental findings described above * Vitals reviewed and noted below: Selected Entries 07/02/18 07/02/18 07:19 16:00 Temperature 97.9 F Pulse Rate 83 81 Respiratory 20 Rate Blood Pressure 135/91 H 148/94 H * Admission labs noted below: 06/30/18 06/30/18 07:15 07:15 Fasting Glucose 99 Triglycerides 313 H Cholesterol 197 LDL Cholesterol Direct 111 HDL Cholesterol 39 Free T4 0.75 L TSH 3rd Generation 2.61 Laboratory Tests 06/28/18 06/28/18 06/28/18 18:20 18:20 18:20 WBC 9.1 D RBC 4.39 Hgb 14.1 Hct 39.6 L MCV 90.2 MCH 32.1 MCHC 35.6 RDW 13.0 Plt Count 223 MPV 8.7 Gran % 66.9 Lymph % (Auto) 24.3 Garza % (Auto) 5.3 Eos % (Auto) 2.7 Baso % (Auto) 0.8 Gran # 6.12 Lymph # (Auto) 2.2 Garza # (Auto) 0.5 Eos # (Auto) 0.3 Baso # (Auto) 0.07 Sodium 142 Potassium 3.7 Chloride 107 Carbon Dioxide 23 Anion Gap 16 BUN 12 Creatinine 0.7 L Est GFR ( Amer) > 60 Est GFR (Non-Af Amer) > 60 POC Glucose (mg/dL) Random Glucose 150 H Fasting Glucose Calcium 9.1 Total Bilirubin 0.2 AST 22 ALT 41 Alkaline Phosphatase 43 Total Protein 6.7 Albumin 3.8 Globulin 2.9 Albumin/Globulin Ratio 1.3 Triglycerides Cholesterol LDL Cholesterol Direct HDL Cholesterol Free T4 TSH 3rd Generation Urine Color Urine Appearance Urine pH Ur Specific [place] Urine Protein Urine Glucose (UA) Urine Ketones Urine Blood Urine Nitrate Urine Bilirubin Urine Urobilinogen Ur Leukocyte Esterase Salicylates < 1 L Urine Opiates Screen Urine Methadone Screen Acetaminophen < 10.0 L Ur Barbiturates Screen Ur Phencyclidine Scrn Ur Amphetamines Screen U Benzodiazepines Scrn U Oth Cocaine Metabols U Cannabinoids Screen Alcohol, Quantitative 06/28/18 06/28/18 06/28/18 18:20 19:20 19:20 WBC RBC Hgb Hct MCV MCH MCHC RDW Plt Count MPV Gran % Lymph % (Auto) Garza % (Auto) Eos % (Auto) Baso % (Auto) Gran # Lymph # (Auto) Garza # (Auto) Eos # (Auto) Baso # (Auto) Sodium Potassium Chloride Carbon Dioxide Anion Gap BUN Creatinine Est GFR ( Amer) Est GFR (Non-Af Amer) POC Glucose (mg/dL) Random Glucose Fasting Glucose Calcium Total Bilirubin AST ALT Alkaline Phosphatase Total Protein Albumin Globulin Albumin/Globulin Ratio Triglycerides Cholesterol LDL Cholesterol Direct HDL Cholesterol Free T4 TSH 3rd Generation Urine Color Yellow Urine Appearance Clear Urine pH 6.0 Ur Specific [place] 1.020 Urine Protein Negative Urine Glucose (UA) Negative Urine Ketones Negative Urine Blood Negative Urine Nitrate Negative Urine Bilirubin Negative Urine Urobilinogen 0.2 Ur Leukocyte Esterase Negative Salicylates Urine Opiates Screen Negative Urine Methadone Screen Negative Acetaminophen Ur Barbiturates Screen Negative Ur Phencyclidine Scrn Negative Ur Amphetamines Screen Negative U Benzodiazepines Scrn Negative U Oth Cocaine Metabols Negative U Cannabinoids Screen Negative Alcohol, Quantitative 86 H 06/29/18 06/30/18 06/30/18 17:28 07:15 07:15 WBC RBC Hgb Hct MCV MCH MCHC RDW Plt Count MPV Gran % Lymph % (Auto) Garza % (Auto) Eos % (Auto) Baso % (Auto) Gran # Lymph # (Auto) Garza # (Auto) Eos # (Auto) Baso # (Auto) Sodium Potassium Chloride Carbon Dioxide Anion Gap BUN Creatinine Est GFR ( Amer) Est GFR (Non-Af Amer) POC Glucose (mg/dL) 110 Random Glucose Fasting Glucose 99 Calcium Total Bilirubin AST ALT Alkaline Phosphatase Total Protein Albumin Globulin Albumin/Globulin Ratio Triglycerides 313 H Cholesterol 197 LDL Cholesterol Direct 111 HDL Cholesterol 39 Free T4 0.75 L TSH 3rd Generation 2.61 Urine Color Urine Appearance Urine pH Ur Specific [place] Urine Protein Urine Glucose (UA) Urine Ketones Urine Blood Urine Nitrate Urine Bilirubin Urine Urobilinogen Ur Leukocyte Esterase Salicylates Urine Opiates Screen Urine Methadone Screen Acetaminophen Ur Barbiturates Screen Ur Phencyclidine Scrn Ur Amphetamines Screen U Benzodiazepines Scrn U Oth Cocaine Metabols U Cannabinoids Screen Alcohol, Quantitative
[2018-07-04] MEDS: buPROPion 150 mg/24 Hours XL Tab PO SCH (08:37)
--- NOTE | 2018-07-04 10:18 | PCM.PYCHPN ---
Psychiatric Progress Note - Psychiatric Progress Note Patient seen today, length of contact: 25 min Patient Chief Complaint: depressed and hopeless Problems Identified/Issues Discussed: History of Present Illness and Precipitating Events: Patient is a single 47-year-old homeless white male with a history of multiple diagnoses including bipolar disorder, Severe Major Depression with psychotic features, schizoaffective disorder, numerous prior psychiatric admissions most recently at [facility] from May 24 to June 02, 2018, poor compliance with psychiatric outpatient follow-up as well as medications, history of at least two suicide temps, who presented to the ER on June 28, 2018 with symptoms of depression, suicidal thoughts to overdose as well as derogatory CAH telling him to kill himself.. I met with patient in the emergency room and interviewed him at bedside as this morning. He continues to be alert and well oriented to year location and circumstances. Grooming is adequate and thus far behavior has been in fair control on the unit. Nursing notes indicate that patient has been guarded and withdrawn with poor eye contact. Patient verbalized having intermittent voices telling him to harm himself however never appeared to be responding to internal stimuli or overly distracted or disorganized in this respect. During our 1:1 patient admitted that he only heard voices coming from inside his head---which may not represent true auditory hallucinations Patient reports continued depression, low energy, restless sleep, anhedonia and back ache from his fall yesterday on the unit. A Code Star was called yesterday evening at 5:25 pm because he slipped on toilet overflow water and landed on his lower back. Patient did not hit his head or lose consciousness. Dr. Padgett has been following up with patient diagnostics regarding this incident. Thus far patient has received a dose of Haldol 5 mg for hallucinations and Ativan for subjective feelings of agitation. Patient is tolerating [place] however doesnt feel that current dose is helping with lability, hallucinations or sleep. He is agreeable to increasing dose today. Thus far there have been no major behavioral issues and he is cooperative with recommended treatment interventions. PSYCHIATRIC HISTORY Prior admissions include [facility] May 24 to June 02, 2018. Other [facility] admissions include [facility] November 23 November 26, 2016 as well as [place] 12/18/14-12/22/2014 & December 30 to January 04, 2015 and [facility] September 14 to September 17, 2013 Patient was discharged on the following medications from [facility] on 06/02. Cogentin 1 mg PO BID Neurontin 300 mg PO BID Risperdal 1 mg po bid Zoloft 100 mg daily trazodone 100 mg HS Patient has a history of poor aftercare follow up as well as poor compliance with medications. Other medication trials include Seroquel XR, thorazine and wellbutrin During November 2016 admission at [facility] [place] [place] patient submitted a 48 hour lette. He was evaluated by [facility] screener who determined that patient did not meet criteria for involuntary psychiatric admission. SOCIAL HISTORY Patient was born in [place]. He was raised in [place]. He is single. Hes been in a long-term relationship with his girlfriend for the past 23 years. He has no children. Patient was living in a hotel for approximately 3 years before becoming homeless 1.5 months ago. 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 Prior records the patient indicated patient has been a history of incarceration for theft. . Patient denies having any history of drug or alcohol issues however prior notes indicate that he does have a history of minimizing prior alcohol abuse and has admitted to drinking up to a pint of vodka daily in 2012. Urine drug screen on this admission was negative. Progress Note 07/04/18 Patient was interviewed at bedside. He is oriented x3, and superficially cooperative. He reports that he continues to be depressed and feels hopeless. He thinks that maybe he is starting to feel a little better, has a little more energy today. Patient isn't suicidal but the auditory hallucinations continue to distress him. He reports having derogatory hallucinations telling him to kill himself throughout the day--this is something he doesn't want to do. Affect continues to be constricted, preoccupied and guarded. He has been isolative and vegetative. Continues to avoid other people because of his irritability and tendency to get overwhelmed easily. Patient is tolerating current medications. Seroquel has been beneficial at current dose to help him sleep and today he admits that auditory hallucinations are less intense (though they still persist as noted above). He has not been observed responding to internal stimuli. He denies any current new discomfort or pain. Back pain is improving but he still needs motrin and tylenol on occasion for aches. He doesn't appear to be in any physical distress during our interview. Diagnostic Results: Mood Disorder NOS Psychosis NOS r/o MDD severe with psychotic features r/o Schizoaffective Disorder by hx Medication Change: No ( ) Medical Record Reviewed: Yes Mental Status Examination - Cognitive Function Orientation: Person, Place, Situation - Mood Mood: Depressed, Anxious - Affect Affect: Constricted - Speech Speech: Soft - Formal Thought Process Formal Thought Process: Hallucinations (auditory derogatory hallucinations telling him to kill himself) - Homicidal Ideation Homicidal Ideation: No Goal/Treatment Plan - Goal/Treatment Plan Progress Toward Problem(s) and Goals/Treatment Plan: * group, milieu and supportive tx * Seroquel 25//50 increased to 25/25/100 for mood control and reported AH on and then again to 25/25/125 for continued lability and AH on 07/02/18. Seroquel increased further more to 25/25/175 on 07/03/18 for continued hallucinations and lability * Wellbutrin XL 150 mg daily for depression * Appreciate f/u by Dr. Padgett on 06/29/18 ~Patient seen and examined with resident. Status post fall. No obvious injuries. Slight lower back pain. X-ray ordered. Patient is alert and awake. Able to ambulate without difficulty.Nursing staff informed to monitor. LUMBAR SPINE XRAY RESULTS 06/29/18 Normal alignment of bones. No listhesis. No fracture. Non marginal osteophyte formation identified at L3-4. Impression: No significant or acute findings to account for/related to the clinical presentation. Additional benign and/or incidental findings described above * Admission labs noted below: Laboratory Tests 06/28/18 06/28/18 06/28/18 18:20 18:20 18:20 WBC 9.1 D RBC 4.39 Hgb 14.1 Hct 39.6 L MCV 90.2 MCH 32.1 MCHC 35.6 RDW 13.0 Plt Count 223 MPV 8.7 Gran % 66.9 Lymph % (Auto) 24.3 [place] % (Auto) 5.3 Eos % (Auto) 2.7 Baso % (Auto) 0.8 Gran # 6.12 Lymph # (Auto) 2.2 [place] # (Auto) 0.5 Eos # (Auto) 0.3 Baso # (Auto) 0.07 Sodium 142 Potassium 3.7 Chloride 107 Carbon Dioxide 23 Anion Gap 16 BUN 12 Creatinine 0.7 L Est GFR ( Amer) > 60 Est GFR (Non-Af Amer) > 60 POC Glucose (mg/dL) Random Glucose 150 H Fasting Glucose Calcium 9.1 Total Bilirubin 0.2 AST 22 ALT 41 Alkaline Phosphatase 43 Total Protein 6.7 Albumin 3.8 Globulin 2.9 Albumin/Globulin Ratio 1.3 Triglycerides Cholesterol LDL Cholesterol Direct HDL Cholesterol Free T4 TSH 3rd Generation Urine Color Urine Appearance Urine pH Ur Specific [place] Urine Protein Urine Glucose (UA) Urine Ketones Urine Blood Urine Nitrate Urine Bilirubin Urine Urobilinogen Ur Leukocyte Esterase Salicylates < 1 L Urine Opiates Screen Urine Methadone Screen Acetaminophen < 10.0 L Ur Barbiturates Screen Ur Phencyclidine Scrn Ur Amphetamines Screen U Benzodiazepines Scrn U Oth Cocaine Metabols U Cannabinoids Screen Alcohol, Quantitative 06/28/18 06/28/18 06/28/18 18:20 19:20 19:20 WBC RBC Hgb Hct MCV MCH MCHC RDW Plt Count MPV Gran % Lymph % (Auto) [place] % (Auto) Eos % (Auto) Baso % (Auto) Gran # Lymph # (Auto) [place] # (Auto) Eos # (Auto) Baso # (Auto) Sodium Potassium Chloride Carbon Dioxide Anion Gap BUN Creatinine Est GFR ( Amer) Est GFR (Non-Af Amer) POC Glucose (mg/dL) Random Glucose Fasting Glucose Calcium Total Bilirubin AST ALT Alkaline Phosphatase Total Protein Albumin Globulin Albumin/Globulin Ratio Triglycerides Cholesterol LDL Cholesterol Direct HDL Cholesterol Free T4 TSH 3rd Generation Urine Color Yellow Urine Appearance Clear Urine pH 6.0 Ur Specific [place] 1.020 Urine Protein Negative Urine Glucose (UA) Negative Urine Ketones Negative Urine Blood Negative Urine Nitrate Negative Urine Bilirubin Negative Urine Urobilinogen 0.2 Ur Leukocyte Esterase Negative Salicylates Urine Opiates Screen Negative Urine Methadone Screen Negative Acetaminophen Ur Barbiturates Screen Negative Ur Phencyclidine Scrn Negative Ur Amphetamines Screen Negative U Benzodiazepines Scrn Negative U Oth Cocaine Metabols Negative U Cannabinoids Screen Negative Alcohol, Quantitative 86 H 06/29/18 06/30/18 06/30/18 17:28 07:15 07:15 WBC RBC Hgb Hct MCV MCH MCHC RDW Plt Count MPV Gran % Lymph % (Auto) [place] % (Auto) Eos % (Auto) Baso % (Auto) Gran # Lymph # (Auto) [place] # (Auto) Eos # (Auto) Baso # (Auto) Sodium Potassium Chloride Carbon Dioxide Anion Gap BUN Creatinine Est GFR ( Amer) Est GFR (Non-Af Amer) POC Glucose (mg/dL) 110 Random Glucose Fasting Glucose 99 Calcium Total Bilirubin AST ALT Alkaline Phosphatase Total Protein Albumin Globulin Albumin/Globulin Ratio Triglycerides 313 H Cholesterol 197 LDL Cholesterol Direct 111 HDL Cholesterol 39 Free T4 0.75 L TSH 3rd Generation 2.61 Urine Color Urine Appearance Urine pH Ur Specific [place] Urine Protein Urine Glucose (UA) Urine Ketones Urine Blood Urine Nitrate Urine Bilirubin Urine Urobilinogen Ur Leukocyte Esterase Salicylates Urine Opiates Screen Urine Methadone Screen Acetaminophen Ur Barbiturates Screen Ur Phencyclidine Scrn Ur Amphetamines Screen U Benzodiazepines Scrn U Oth Cocaine Metabols U Cannabinoids Screen Alcohol, Quantitative
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
[2018-07-05] MEDS: buPROPion 150 mg/24 Hours XL Tab PO SCH (08:27)
--- NOTE | 2018-07-05 10:11 | PCM.PYCHPN ---
Psychiatric Progress Note - Psychiatric Progress Note Patient seen today, length of contact: 25 min Patient Chief Complaint: depressed and hopeless Problems Identified/Issues Discussed: History of Present Illness and Precipitating Events: Patient is a single 47-year-old homeless white male with a history of multiple diagnoses including bipolar disorder, Severe Major Depression with psychotic features, schizoaffective disorder, numerous prior psychiatric admissions most recently at [facility] from May 24 to June 02, 2018, poor compliance with psychiatric outpatient follow-up as well as medications, history of at least two suicide temps, who presented to the ER on June 28, 2018 with symptoms of depression, suicidal thoughts to overdose as well as derogatory CAH telling him to kill himself.. I met with patient in the emergency room and interviewed him at bedside as this morning. He continues to be alert and well oriented to year location and circumstances. Grooming is adequate and thus far behavior has been in fair control on the unit. Nursing notes indicate that patient has been guarded and withdrawn with poor eye contact. Patient verbalized having intermittent voices telling him to harm himself however never appeared to be responding to internal stimuli or overly distracted or disorganized in this respect. During our 1:1 patient admitted that he only heard voices coming from inside his head---which may not represent true auditory hallucinations Patient reports continued depression, low energy, restless sleep, anhedonia and back ache from his fall yesterday on the unit. A Code Star was called yesterday evening at 5:25 pm because he slipped on toilet overflow water and landed on his lower back. Patient did not hit his head or lose consciousness. Dr. Padgett has been following up with patient diagnostics regarding this incident. Thus far patient has received a dose of Haldol 5 mg for hallucinations and Ativan for subjective feelings of agitation. Patient is tolerating [place] however doesnt feel that current dose is helping with lability, hallucinations or sleep. He is agreeable to increasing dose today. Thus far there have been no major behavioral issues and he is cooperative with recommended treatment interventions. PSYCHIATRIC HISTORY Prior admissions include [facility] May 24 to June 02, 2018. Other [facility] admissions [facility] November 23 November 26, 2016 as well as [place] 12/18/14-12/22/2014 & December 30 to January 04, 2015 and [facility] September 14 to September 17, 2013 Patient was discharged on the following medications from [facility] on 06/02. Cogentin 1 mg PO BID Neurontin 300 mg PO BID Risperdal 1 mg po bid Zoloft 100 mg daily trazodone 100 mg HS Patient has a history of poor aftercare follow up as well as poor compliance with medications. Other medication trials include Seroquel XR, thorazine and wellbutrin During November 2016 admission at [facility] patient submitted a 48 hour lette. He was evaluated by [facility] screener who determined that patient did not meet criteria for involuntary psychiatric admission. SOCIAL HISTORY Patient was born in [place]. He was raised in [place]. He is single. Hes been in a long-term relationship with his girlfriend for the past 23 years. He has no children. Patient was living in a hotel for approximately 3 years before becoming homeless 1.5 months ago. 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 Prior records the patient indicated patient has been a history of incarceration for theft. . Patient denies having any history of drug or alcohol issues however prior notes indicate that he does have a history of minimizing prior alcohol abuse and has admitted to drinking up to a pint of vodka daily in 2012. Urine drug screen on this admission was negative. Progress Note 07/05/18 Patient was interviewed at bedside. He is oriented x3, and superficially cooperative. He reports that he continues to be depressed and feels hopeless. He thinks that maybe he is starting to feel a little better, has a little more energy today. Patient isn't suicidal but the auditory hallucinations continue to distress him. He reports having derogatory hallucinations telling him to kill himself throughout the day--this is something he doesn't want to do. Affect continues to be constricted, preoccupied and guarded. He has been isolative and vegetative. Continues to avoid other people because of his irritability and tendency to get overwhelmed easily. Patient is tolerating current medications. Seroquel has been beneficial at current dose to help him sleep and he continues to report that auditory hallucinations are a little less intense (though they still persist as noted above). He has not been observed responding to internal stimuli. He denies any current new discomfort or pain. Back pain is improving but he still needs motrin and tylenol on occasion for aches. He doesn't appear to be in any physical distress during our interview. Diagnostic Results: Mood Disorder NOS Psychosis NOS r/o MDD severe with psychotic features r/o Schizoaffective Disorder by hx Medication Change: No ( ) Medical Record Reviewed: Yes Mental Status Examination - Cognitive Function Orientation: Person, Place, Situation - Mood Mood: Depressed, Anxious - Affect Affect: Constricted - Speech Speech: Soft - Formal Thought Process Formal Thought Process: Hallucinations (auditory derogatory hallucinations telling him to kill himself) - Homicidal Ideation Homicidal Ideation: No Goal/Treatment Plan - Goal/Treatment Plan Progress Toward Problem(s) and Goals/Treatment Plan: * group, milieu and supportive tx * Seroquel 25//50 increased to 25/25/100 for mood control and reported AH on and then again to 25/25/125 for continued lability and AH on 07/02/18. Seroquel increased further more to 25/25/175 on 07/03/18 for continued hallucinations and lability * Wellbutrin XL 150 mg daily for depression * Vitals reviewed and noted below: Selected Entries 07/04/18 07/04/18 07:03 16:29 Temperature 97.9 F Pulse Rate 88 90 Respiratory 20 Rate Blood Pressure 120/76 135/96 H * Appreciate f/u by Dr. Padgett on 06/29/18 s/p fall ~Patient seen and examined with resident. Status post fall. No obvious injuries. Slight lower back pain. X-ray ordered. Patient is alert and awake. Able to ambulate without difficulty.Nursing staff informed to monitor. LUMBAR SPINE XRAY RESULTS 06/29/18 Normal alignment of bones. No listhesis. No fracture. Non marginal osteophyte formation identified at L3-4. Impression: No significant or acute findings to account for/related to the clinical presentation. Additional benign and/or incidental findings described above * Appreciate f/u by Dr. Ribera on 07/03/18~ no IV pain medications needed at this time, normotensive and no interventions needed for blood pressures. Dr. Ribera signed off as patient was considering medically optimized. * Admission labs noted below: Laboratory Tests 06/28/18 06/28/18 06/28/18 18:20 18:20 18:20 WBC 9.1 D RBC 4.39 Hgb 14.1 Hct 39.6 L MCV 90.2 MCH 32.1 MCHC 35.6 RDW 13.0 Plt Count 223 MPV 8.7 Gran % 66.9 Lymph % (Auto) 24.3 [place] % (Auto) 5.3 Eos % (Auto) 2.7 Baso % (Auto) 0.8 Gran # 6.12 Lymph # (Auto) 2.2 [place] # (Auto) 0.5 Eos # (Auto) 0.3 Baso # (Auto) 0.07 Sodium 142 Potassium 3.7 Chloride 107 Carbon Dioxide 23 Anion Gap 16 BUN 12 Creatinine 0.7 L Est GFR ( Amer) > 60 Est GFR (Non-Af Amer) > 60 POC Glucose (mg/dL) Random Glucose 150 H Fasting Glucose Calcium 9.1 Total Bilirubin 0.2 AST 22 ALT 41 Alkaline Phosphatase 43 Total Protein 6.7 Albumin 3.8 Globulin 2.9 Albumin/Globulin Ratio 1.3 Triglycerides Cholesterol LDL Cholesterol Direct HDL Cholesterol Free T4 TSH 3rd Generation Urine Color Urine Appearance Urine pH Ur Specific [place] Urine Protein Urine Glucose (UA) Urine Ketones Urine Blood Urine Nitrate Urine Bilirubin Urine Urobilinogen Ur Leukocyte Esterase Salicylates < 1 L Urine Opiates Screen Urine Methadone Screen Acetaminophen < 10.0 L Ur Barbiturates Screen Ur Phencyclidine Scrn Ur Amphetamines Screen U Benzodiazepines Scrn U Oth Cocaine Metabols U Cannabinoids Screen Alcohol, Quantitative 06/28/18 06/28/18 06/28/18 18:20 19:20 19:20 WBC RBC Hgb Hct MCV MCH MCHC RDW Plt Count MPV Gran % Lymph % (Auto) [place] % (Auto) Eos % (Auto) Baso % (Auto) Gran # Lymph # (Auto) [place] # (Auto) Eos # (Auto) Baso # (Auto) Sodium Potassium Chloride Carbon Dioxide Anion Gap BUN Creatinine Est GFR ( Amer) Est GFR (Non-Af Amer) POC Glucose (mg/dL) Random Glucose Fasting Glucose Calcium Total Bilirubin AST ALT Alkaline Phosphatase Total Protein Albumin Globulin Albumin/Globulin Ratio Triglycerides Cholesterol LDL Cholesterol Direct HDL Cholesterol Free T4 TSH 3rd Generation Urine Color Yellow Urine Appearance Clear Urine pH 6.0 Ur Specific [place] 1.020 Urine Protein Negative Urine Glucose (UA) Negative Urine Ketones Negative Urine Blood Negative Urine Nitrate Negative Urine Bilirubin Negative Urine Urobilinogen 0.2 Ur Leukocyte Esterase Negative Salicylates Urine Opiates Screen Negative Urine Methadone Screen Negative Acetaminophen Ur Barbiturates Screen Negative Ur Phencyclidine Scrn Negative Ur Amphetamines Screen Negative U Benzodiazepines Scrn Negative U Oth Cocaine Metabols Negative U Cannabinoids Screen Negative Alcohol, Quantitative 86 H 06/29/18 06/30/18 06/30/18 17:28 07:15 07:15 WBC RBC Hgb Hct MCV MCH MCHC RDW Plt Count MPV Gran % Lymph % (Auto) [place] % (Auto) Eos % (Auto) Baso % (Auto) Gran # Lymph # (Auto) [place] # (Auto) Eos # (Auto) Baso # (Auto) Sodium Potassium Chloride Carbon Dioxide Anion Gap BUN Creatinine Est GFR ( Amer) Est GFR (Non-Af Amer) POC Glucose (mg/dL) 110 Random Glucose Fasting Glucose 99 Calcium Total Bilirubin AST ALT Alkaline Phosphatase Total Protein Albumin Globulin Albumin/Globulin Ratio Triglycerides 313 H Cholesterol 197 LDL Cholesterol Direct 111 HDL Cholesterol 39 Free T4 0.75 L TSH 3rd Generation 2.61 Urine Color Urine Appearance Urine pH Ur Specific [place] Urine Protein Urine Glucose (UA) Urine Ketones Urine Blood Urine Nitrate Urine Bilirubin Urine Urobilinogen Ur Leukocyte Esterase Salicylates Urine Opiates Screen Urine Methadone Screen Acetaminophen Ur Barbiturates Screen Ur Phencyclidine Scrn Ur Amphetamines Screen U Benzodiazepines Scrn U Oth Cocaine Metabols U Cannabinoids Screen Alcohol, Quantitative
[2018-07-06] MEDS: buPROPion 150 mg/24 Hours XL Tab PO SCH (08:17)
--- NOTE | 2018-07-06 09:50 | PCM.PYCHPN ---
Psychiatric Progress Note - Psychiatric Progress Note Patient seen today, length of contact: 25 min Patient Chief Complaint: depressed and hopeless Problems Identified/Issues Discussed: History of Present Illness and Precipitating Events: Patient is a single 47-year-old homeless white male with a history of multiple diagnoses including bipolar disorder, Severe Major Depression with psychotic features, schizoaffective disorder, numerous prior psychiatric admissions most recently at [facility] from May 24 to June 02, 2018, poor compliance with psychiatric outpatient follow-up as well as medications, history of at least two suicide temps, who presented to the ER on June 28, 2018 with symptoms of depression, suicidal thoughts to overdose as well as derogatory CAH telling him to kill himself.. I met with patient in the emergency room and interviewed him at bedside as this morning. He continues to be alert and well oriented to year location and circumstances. Grooming is adequate and thus far behavior has been in fair control on the unit. Nursing notes indicate that patient has been guarded and withdrawn with poor eye contact. Patient verbalized having intermittent voices telling him to harm himself however never appeared to be responding to internal stimuli or overly distracted or disorganized in this respect. During our 1:1 patient admitted that he only heard voices coming from inside his head---which may not represent true auditory hallucinations Patient reports continued depression, low energy, restless sleep, anhedonia and back ache from his fall yesterday on the unit. A Code Star was called yesterday evening at 5:25 pm because he slipped on toilet overflow water and landed on his lower back. Patient did not hit his head or lose consciousness. Dr. Padgett has been following up with patient diagnostics regarding this incident. Thus far patient has received a dose of Haldol 5 mg for hallucinations and Ativan for subjective feelings of agitation. Patient is tolerating [place] however doesnt feel that current dose is helping with lability, hallucinations or sleep. He is agreeable to increasing dose today. Thus far there have been no major behavioral issues and he is cooperative with recommended treatment interventions. PSYCHIATRIC HISTORY Prior admissions include [facility] May 24 to June 02, 2018. Other [facility] admissions include [facility] November 23 November 26, 2016 as well as [place] 12/18/14-12/22/2014 & December 30 to January 04, 2015 and [facility] September 14 to September 17, 2013 Patient was discharged on the following medications from [facility] on 06/02. Cogentin 1 mg PO BID Neurontin 300 mg PO BID Risperdal 1 mg po bid Zoloft 100 mg daily trazodone 100 mg HS Patient has a history of poor aftercare follow up as well as poor compliance with medications. Other medication trials include Seroquel XR, thorazine and wellbutrin During November 2016 admission at [facility] patient submitted a 48 hour lette. He was evaluated by [facility] screener who determined that patient did not meet criteria for involuntary psychiatric admission. SOCIAL HISTORY Patient was born in [place]. He was raised in [place]. He is single. Hes been in a long-term relationship with his girlfriend for the past 23 years. He has no children. Patient was living in a hotel for approximately 3 years before becoming homeless 1.5 months ago. 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 Prior records the patient indicated patient has been a history of incarceration for theft. . Patient denies having any history of drug or alcohol issues however prior notes indicate that he does have a history of minimizing prior alcohol abuse and has admitted to drinking up to a pint of vodka daily in 2012. Urine drug screen on this admission was negative. Progress Note 07/05/18 Patient was interviewed at bedside again. He is oriented x3, and superficially cooperative. He reports that he continues to be depressed. He feels a little less hopeless today and denies suicidal thoughts. Indicates that he feels safe on the unit and denies paranoia or persecutory thoughts. Patient reports having derogatory hallucinations telling him to kill himself intermittently throughout the day--this is something he doesn't want to do. Affect continues to be constricted, preoccupied and guarded. He has been isolative and vegetative. He is visible on the unit for short periods of time and attended group. Overall he continues to avoid other people because of his irritability and tendency to get overwhelmed easily. Patient is tolerating current medications. Seroquel has been beneficial at current dose to help him sleep and he continues to report that auditory hallucinations are a little less intense (though they still persist as noted above). He has not been observed responding to internal stimuli. Thought process is clear and coherent. He denies any current new discomfort or pain. Back pain persists but it is improving. He still needs motrin and tylenol on occasion for back aches. He doesn't appear to be in any physical distress during our interview and was informed of his negative xray results and that he was evaluated by two medical doctors for this complaint. Diagnostic Results: Mood Disorder NOS Psychosis NOS r/o MDD severe with psychotic features r/o Schizoaffective Disorder by hx Medication Change: No ( ) Medical Record Reviewed: Yes Mental Status Examination - Cognitive Function Orientation: Person, Place, Situation - Mood Mood: Depressed, Anxious - Affect Affect: Constricted - Speech Speech: Soft - Formal Thought Process Formal Thought Process: Hallucinations (auditory derogatory hallucinations telling him to kill himself) - Homicidal Ideation Homicidal Ideation: No Goal/Treatment Plan - Goal/Treatment Plan Progress Toward Problem(s) and Goals/Treatment Plan: * group, milieu and supportive tx * Seroquel 25/25/50 increased to 25/25/100 for mood control and reported AH on and then again to 25/25/125 for continued lability and AH on 07/02/18. Seroquel increased further more to 25/25/175 on 07/03/18 for continued hallucinations and lability * Wellbutrin XL 150 mg daily for depression * Patient complained of constipation today 07/06/18 and patient reminded to request MOM prn for this complaint. * Vitals reviewed and noted below: Selected Entries 07/05/18 07/05/18 07:04 15:00 Temperature 97.5 F L Pulse Rate 87 92 H Respiratory 20 18 Rate Blood Pressure 125/81 144/100 H * Appreciate f/u by Dr. Padgett on 06/29/18 s/p fall ~Patient seen and examined with resident. Status post fall. No obvious injuries. Slight lower back pain. X-ray ordered. Patient is alert and awake. Able to ambulate without difficulty.Nursing staff informed to monitor. LUMBAR SPINE XRAY RESULTS 06/29/18 Normal alignment of bones. No listhesis. No fracture. Non marginal osteophyte formation identified at L3-4. Impression: No significant or acute findings to account for/related to the clinical presentation. Additional benign and/or incidental findings described above * Appreciate f/u by Dr. Ribera on 07/03/18~ no IV pain medications needed at this time, normotensive and no interventions needed for blood pressures. Dr. Ribera signed off as patient was considering medically optimized. * Admission labs noted below: Laboratory Tests 06/28/18 06/28/18 06/28/18 18:20 18:20 18:20 WBC 9.1 D RBC 4.39 Hgb 14.1 Hct 39.6 L MCV 90.2 MCH 32.1 MCHC 35.6 RDW 13.0 Plt Count 223 MPV 8.7 Gran % 66.9 Lymph % (Auto) 24.3 [place] % (Auto) 5.3 Eos % (Auto) 2.7 Baso % (Auto) 0.8 Gran # 6.12 Lymph # (Auto) 2.2 [place] # (Auto) 0.5 Eos # (Auto) 0.3 Baso # (Auto) 0.07 Sodium 142 Potassium 3.7 Chloride 107 Carbon Dioxide 23 Anion Gap 16 BUN 12 Creatinine 0.7 L Est GFR ( Amer) > 60 Est GFR (Non-Af Amer) > 60 POC Glucose (mg/dL) Random Glucose 150 H Fasting Glucose Calcium 9.1 Total Bilirubin 0.2 AST 22 ALT 41 Alkaline Phosphatase 43 Total Protein 6.7 Albumin 3.8 Globulin 2.9 Albumin/Globulin Ratio 1.3 Triglycerides Cholesterol LDL Cholesterol Direct HDL Cholesterol Free T4 TSH 3rd Generation Urine Color Urine Appearance Urine pH Ur Specific [place] Urine Protein Urine Glucose (UA) Urine Ketones Urine Blood Urine Nitrate Urine Bilirubin Urine Urobilinogen Ur Leukocyte Esterase Salicylates < 1 L Urine Opiates Screen Urine Methadone Screen Acetaminophen < 10.0 L Ur Barbiturates Screen Ur Phencyclidine Scrn Ur Amphetamines Screen U Benzodiazepines Scrn U Oth Cocaine Metabols U Cannabinoids Screen Alcohol, Quantitative 06/28/18 06/28/18 06/28/18 18:20 19:20 19:20 WBC RBC Hgb Hct MCV MCH MCHC RDW Plt Count MPV Gran % Lymph % (Auto) [place] % (Auto) Eos % (Auto) Baso % (Auto) Gran # Lymph # (Auto) [place] # (Auto) Eos # (Auto) Baso # (Auto) Sodium Potassium Chloride Carbon Dioxide Anion Gap BUN Creatinine Est GFR ( Amer) Est GFR (Non-Af Amer) POC Glucose (mg/dL) Random Glucose Fasting Glucose Calcium Total Bilirubin AST ALT Alkaline Phosphatase Total Protein Albumin Globulin Albumin/Globulin Ratio Triglycerides Cholesterol LDL Cholesterol Direct HDL Cholesterol Free T4 TSH 3rd Generation Urine Color Yellow Urine Appearance Clear Urine pH 6.0 Ur Specific [place] 1.020 Urine Protein Negative Urine Glucose (UA) Negative Urine Ketones Negative Urine Blood Negative Urine Nitrate Negative Urine Bilirubin Negative Urine Urobilinogen 0.2 Ur Leukocyte Esterase Negative Salicylates Urine Opiates Screen Negative Urine Methadone Screen Negative Acetaminophen Ur Barbiturates Screen Negative Ur Phencyclidine Scrn Negative Ur Amphetamines Screen Negative U Benzodiazepines Scrn Negative U Oth Cocaine Metabols Negative U Cannabinoids Screen Negative Alcohol, Quantitative 86 H 06/29/18 06/30/18 06/30/18 17:28 07:15 07:15 WBC RBC Hgb Hct MCV MCH MCHC RDW Plt Count MPV Gran % Lymph % (Auto) [place] % (Auto) Eos % (Auto) Baso % (Auto) Gran # Lymph # (Auto) [place] # (Auto) Eos # (Auto) Baso # (Auto) Sodium Potassium Chloride Carbon Dioxide Anion Gap BUN Creatinine Est GFR ( Amer) Est GFR (Non-Af Amer) POC Glucose (mg/dL) 110 Random Glucose Fasting Glucose 99 Calcium Total Bilirubin AST ALT Alkaline Phosphatase Total Protein Albumin Globulin Albumin/Globulin Ratio Triglycerides 313 H Cholesterol 197 LDL Cholesterol Direct 111 HDL Cholesterol 39 Free T4 0.75 L TSH 3rd Generation 2.61 Urine Color Urine Appearance Urine pH Ur Specific [place] Urine Protein Urine Glucose (UA) Urine Ketones Urine Blood Urine Nitrate Urine Bilirubin Urine Urobilinogen Ur Leukocyte Esterase Salicylates Urine Opiates Screen Urine Methadone Screen Acetaminophen Ur Barbiturates Screen Ur Phencyclidine Scrn Ur Amphetamines Screen U Benzodiazepines Scrn U Oth Cocaine Metabols U Cannabinoids Screen Alcohol, Quantitative
[2018-07-07 07:13] VITALS: RESP 20
[2018-07-07] MEDS: buPROPion 150 mg/24 Hours XL Tab PO SCH (08:24)
--- NOTE | 2018-07-07 10:37 | PCM.BM ---
<Karen Miller - Last Filed: 07/07/18 10:34> Treatment Plan Problems - Problems identified on initial assessmt Medication Nonadherence Date Initiated: 06/29/18 Time Initiated: 12:00 Date resolved: 07/07/18 Assessment reference: NA Status: Active Priority: 1 Auditory Hallucinations Date Initiated: 06/29/18 (07/07/18 pt admits to hearing voices at times) Time Initiated: 12:00 Assessment reference: NA Status: Active Priority: 2 Hopelessness/Helplessness Date Initiated: 06/29/18 Time Initiated: 12:00 Date resolved: 07/07/18 Assessment reference: NA Status: Active Priority: 3 Feelings of Worthlessness Date Initiated: 06/29/18 Time Initiated: 12:00 Date resolved: 07/07/18 Assessment reference: NA Status: Active Priority: 4 Ineffective Coping Date Initiated: 06/29/18 (07/07 states"he remain feeling depressed) Time Initiated: 12:00 Assessment reference: NA Status: Active Priority: 5 Treatment assets and liabiliti Patient Assests: cooperative (pt. provided information about his illness.), insightful, ADL independent, physically healthy, negotiates basic needs Patient Liabilities: financial problems, poor support system - Milieu Protocol Maintain good personal hygiene: daily Encourage regular showers, every shift Remind patient to perform daily oral care, every shift Assist patient to perform ADL's Maintain personal safety: every shift Educate patient to report safety concerns to staff, every shift Monitor environment for contraband/sharps Medication safety: Monitor for expected outcome, potential side effects: every shift, Assess barriers to learning: every shift, Assess readiness for medication education: every shift Milieu Narrative: * group, milieu and supportive tx * Seroquel 25/25/50 increased to 25/25/100 for mood control and reported AH on and then again to 25/25/125 for continued lability and AH on 07/02/18. Seroquel increased further more to 25/25/175 on 07/03/18 for continued hallucinations and lability * Wellbutrin XL 150 mg daily for depression * Patient complained of constipation today 07/06/18 and patient reminded to request MOM prn for this complaint. * Vitals reviewed and noted below: Selected Entries 07/05/18 07/05/18 07:04 15:00 Temperature 97.5 F L Pulse Rate 87 92 H Respiratory 20 18 Rate Blood Pressure 125/81 144/100 H * Appreciate f/u by Dr. Padgett on 06/29/18 s/p fall ~Patient seen and examined with resident. Status post fall. No obvious injuries. Slight lower back pain. X-ray ordered. Patient is alert and awake. Able to ambulate without difficulty.Nursing staff informed to monitor. LUMBAR SPINE XRAY RESULTS 06/29/18 Normal alignment of bones. No listhesis. No fracture. Non marginal osteophyte formation identified at L3-4. Impression: No significant or acute findings to account for/related to the clinical presentation. Additional benign and/or incidental findings described above * Appreciate f/u by Dr. Ribera on 07/03/18~ no IV pain medications needed at this time, normotensive and no interventions needed for blood pressures. Dr. Ribera signed off as patient was considering medically optimized. * Admission labs noted below: Laboratory Tests 06/28/18 06/28/18 06/28/18 18:20 18:20 18:20 WBC 9.1 D RBC 4.39 Hgb 14.1 Hct 39.6 L MCV 90.2 MCH 32.1 MCHC 35.6 RDW 13.0 Plt Count 223 MPV 8.7 Gran % 66.9 Lymph % (Auto) 24.3 [place] % (Auto) 5.3 Eos % (Auto) 2.7 Baso % (Auto) 0.8 Gran # 6.12 Lymph # (Auto) 2.2 [place] # (Auto) 0.5 Eos # (Auto) 0.3 Baso # (Auto) 0.07 Sodium 142 Potassium 3.7 Chloride 107 Carbon Dioxide 23 Anion Gap 16 BUN 12 Creatinine 0.7 L Est GFR ( Amer) > 60 Est GFR (Non-Af Amer) > 60 POC Glucose (mg/dL) Random Glucose 150 H Fasting Glucose Calcium 9.1 Total Bilirubin 0.2 AST 22 ALT 41 Alkaline Phosphatase 43 Total Protein 6.7 Albumin 3.8 Globulin 2.9 Albumin/Globulin Ratio 1.3 Triglycerides Cholesterol LDL Cholesterol Direct HDL Cholesterol Free T4 TSH 3rd Generation Urine Color Urine Appearance Urine pH Ur Specific [place] Urine Protein Urine Glucose (UA) Urine Ketones Urine Blood Urine Nitrate Urine Bilirubin Urine Urobilinogen Ur Leukocyte Esterase Salicylates < 1 L Urine Opiates Screen Urine Methadone Screen Acetaminophen < 10.0 L Ur Barbiturates Screen Ur Phencyclidine Scrn Ur Amphetamines Screen U Benzodiazepines Scrn U Oth Cocaine Metabols U Cannabinoids Screen Alcohol, Quantitative 06/28/18 06/28/18 06/28/18 18:20 19:20 19:20 WBC RBC Hgb Hct MCV MCH MCHC RDW Plt Count MPV Gran % Lymph % (Auto) [place] % (Auto) Eos % (Auto) Baso % (Auto) Gran # Lymph # (Auto) [place] # (Auto) Eos # (Auto) Baso # (Auto) Sodium Potassium Chloride Carbon Dioxide Anion Gap BUN Creatinine Est GFR ( Amer) Est GFR (Non-Af Amer) POC Glucose (mg/dL) Random Glucose Fasting Glucose Calcium Total Bilirubin AST ALT Alkaline Phosphatase Total Protein Albumin Globulin Albumin/Globulin Ratio Triglycerides Cholesterol LDL Cholesterol Direct HDL Cholesterol Free T4 TSH 3rd Generation Urine Color Yellow Urine Appearance Clear Urine pH 6.0 Ur Specific [place] 1.020 Urine Protein Negative Urine Glucose (UA) Negative Urine Ketones Negative Urine Blood Negative Urine Nitrate Negative Urine Bilirubin Negative Urine Urobilinogen 0.2 Ur Leukocyte Esterase Negative Salicylates Urine Opiates Screen Negative Urine Methadone Screen Negative Acetaminophen Ur Barbiturates Screen Negative Ur Phencyclidine Scrn Negative Ur Amphetamines Screen Negative U Benzodiazepines Scrn Negative U Oth Cocaine Metabols Negative U Cannabinoids Screen Negative Alcohol, Quantitative 86 H 06/29/18 06/30/18 06/30/18 17:28 07:15 07:15 WBC RBC Hgb Hct MCV MCH MCHC RDW Plt Count MPV Gran % Lymph % (Auto) [place] % (Auto) Eos % (Auto) Baso % (Auto) Gran # Lymph # (Auto) [place] # (Auto) Eos # (Auto) Baso # (Auto) Sodium Potassium Chloride Carbon Dioxide Anion Gap BUN Creatinine Est GFR ( Amer) Est GFR (Non-Af Amer) POC Glucose (mg/dL) 110 Random Glucose Fasting Glucose 99 Calcium Total Bilirubin AST ALT Alkaline Phosphatase Total Protein Albumin Globulin Albumin/Globulin Ratio Triglycerides 313 H Cholesterol 197 LDL Cholesterol Direct 111 HDL Cholesterol 39 Free T4 0.75 L TSH 3rd Generation 2.61 Urine Color Urine Appearance Urine pH Ur Specific [place] Urine Protein Urine Glucose (UA) Urine Ketones Urine Blood Urine Nitrate Urine Bilirubin Urine Urobilinogen Ur Leukocyte Esterase Salicylates Urine Opiates Screen Urine Methadone Screen Acetaminophen Ur Barbiturates Screen Ur Phencyclidine Scrn Ur Amphetamines Screen U Benzodiazepines Scrn U Oth Cocaine Metabols U Cannabinoids Screen Alcohol, Quantitative Family Contact Family involvement: Famliy/SO not involved - Goals for Treatment Patient goals for treatment: "Try to get more stabilized and get rid of voices- stable mind with peace. Discharge/Continuing Care - Education Needs Education Needs: Patient Medication, Patient Diagnosis/Disease Process, Patient Coping Skills, Patient Anger Management skills, Patient Placement options, Patient Community resources, Patient Activities of Daily Living, Patient Pain, Patient Nutrition, Patient Uses of Medical Equipment, Patient Health Practices/ Safety, Patient Personal Hygiene/Grooming, Patient Aftercare Safety Plan - Discharge Discharge Criteria: Tolerates medication w/o severe side effects - Treatment Team Participation Patient/Family/SO Statement: * group, milieu and supportive tx * Seroquel 25/25/50 increased to 25/25/100 for mood control and reported AH on and then again to 25/25/125 for continued lability and AH on 07/02/18. Seroquel increased further more to 25/25/175 on 07/03/18 for continued hallucinations and lability * Wellbutrin XL 150 mg daily for depression * Patient complained of constipation today 07/06/18 and patient reminded to request MOM prn for this complaint. * Vitals reviewed and noted below: Selected Entries 07/05/18 07/05/18 07:04 15:00 Temperature 97.5 F L Pulse Rate 87 92 H Respiratory 20 18 Rate Blood Pressure 125/81 144/100 H * Appreciate f/u by Dr. Padgett on 06/29/18 s/p fall ~Patient seen and examined with resident. Status post fall. No obvious injuries. Slight lower back pain. X-ray ordered. Patient is alert and awake. Able to ambulate without difficulty.Nursing staff informed to monitor. LUMBAR SPINE XRAY RESULTS 06/29/18 Normal alignment of bones. No listhesis. No fracture. Non marginal osteophyte formation identified at L3-4. Impression: No significant or acute findings to account for/related to the clinical presentation. Additional benign and/or incidental findings described above * Appreciate f/u by Dr. Ribera on 07/03/18~ no IV pain medications needed at this time, normotensive and no interventions needed for blood pressures. Dr. Ribera signed off as patient was considering medically optimized. * Admission labs noted below: Laboratory Tests 06/28/18 06/28/18 06/28/18 18:20 18:20 18:20 WBC 9.1 D RBC 4.39 Hgb 14.1 Hct 39.6 L MCV 90.2 MCH 32.1 MCHC 35.6 RDW 13.0 Plt Count 223 MPV 8.7 Gran % 66.9 Lymph % (Auto) 24.3 [place] % (Auto) 5.3 Eos % (Auto) 2.7 Baso % (Auto) 0.8 Gran # 6.12 Lymph # (Auto) 2.2 [place] # (Auto) 0.5 Eos # (Auto) 0.3 Baso # (Auto) 0.07 Sodium 142 Potassium 3.7 Chloride 107 Carbon Dioxide 23 Anion Gap 16 BUN 12 Creatinine 0.7 L Est GFR ( Amer) > 60 Est GFR (Non-Af Amer) > 60 POC Glucose (mg/dL) Random Glucose 150 H Fasting Glucose Calcium 9.1 Total Bilirubin 0.2 AST 22 ALT 41 Alkaline Phosphatase 43 Total Protein 6.7 Albumin 3.8 Globulin 2.9 Albumin/Globulin Ratio 1.3 Triglycerides Cholesterol LDL Cholesterol Direct HDL Cholesterol Free T4 TSH 3rd Generation Urine Color Urine Appearance Urine pH Ur Specific [place] Urine Protein Urine Glucose (UA) Urine Ketones Urine Blood Urine Nitrate Urine Bilirubin Urine Urobilinogen Ur Leukocyte Esterase Salicylates < 1 L Urine Opiates Screen Urine Methadone Screen Acetaminophen < 10.0 L Ur Barbiturates Screen Ur Phencyclidine Scrn Ur Amphetamines Screen U Benzodiazepines Scrn U Oth Cocaine Metabols U Cannabinoids Screen Alcohol, Quantitative 06/28/18 06/28/18 06/28/18 18:20 19:20 19:20 WBC RBC Hgb Hct MCV MCH MCHC RDW Plt Count MPV Gran % Lymph % (Auto) [place] % (Auto) Eos % (Auto) Baso % (Auto) Gran # Lymph # (Auto) [place] # (Auto) Eos # (Auto) Baso # (Auto) Sodium Potassium Chloride Carbon Dioxide Anion Gap BUN Creatinine Est GFR ( Amer) Est GFR (Non-Af Amer) POC Glucose (mg/dL) Random Glucose Fasting Glucose Calcium Total Bilirubin AST ALT Alkaline Phosphatase Total Protein Albumin Globulin Albumin/Globulin Ratio Triglycerides Cholesterol LDL Cholesterol Direct HDL Cholesterol Free T4 TSH 3rd Generation Urine Color Yellow Urine Appearance Clear Urine pH 6.0 Ur Specific [place] 1.020 Urine Protein Negative Urine Glucose (UA) Negative Urine Ketones Negative Urine Blood Negative Urine Nitrate Negative Urine Bilirubin Negative Urine Urobilinogen 0.2 Ur Leukocyte Esterase Negative Salicylates Urine Opiates Screen Negative Urine Methadone Screen Negative Acetaminophen Ur Barbiturates Screen Negative Ur Phencyclidine Scrn Negative Ur Amphetamines Screen Negative U Benzodiazepines Scrn Negative U Oth Cocaine Metabols Negative U Cannabinoids Screen Negative Alcohol, Quantitative 86 H 06/29/18 06/30/18 06/30/18 17:28 07:15 07:15 WBC RBC Hgb Hct MCV MCH MCHC RDW Plt Count MPV Gran % Lymph % (Auto) [place] % (Auto) Eos % (Auto) Baso % (Auto) Gran # Lymph # (Auto) [place] # (Auto) Eos # (Auto) Baso # (Auto) Sodium Potassium Chloride Carbon Dioxide Anion Gap BUN Creatinine Est GFR ( Amer) Est GFR (Non-Af Amer) POC Glucose (mg/dL) 110 Random Glucose Fasting Glucose 99 Calcium Total Bilirubin AST ALT Alkaline Phosphatase Total Protein Albumin Globulin Albumin/Globulin Ratio Triglycerides 313 H Cholesterol 197 LDL Cholesterol Direct 111 HDL Cholesterol 39 Free T4 0.75 L TSH 3rd Generation 2.61 Urine Color Urine Appearance Urine pH Ur Specific [place] Urine Protein Urine Glucose (UA) Urine Ketones Urine Blood Urine Nitrate Urine Bilirubin Urine Urobilinogen Ur Leukocyte Esterase Salicylates Urine Opiates Screen Urine Methadone Screen Acetaminophen Ur Barbiturates Screen Ur Phencyclidine Scrn Ur Amphetamines Screen U Benzodiazepines Scrn U Oth Cocaine Metabols U Cannabinoids Screen Alcohol, Quantitative Treatment Plan Review - Problem Medication Nonadherence Time Initiated: 12:00 Auditory Hallucinations Time Initiated: 12:00 Hopelessness/Helplessness Time Initiated: 12:00 Feelings of Worthlessness Time Initiated: 12:00 Ineffective Coping Time Initiated: 12:00 <Shauna Tejeda A - Last Filed: 07/07/18 15:42> - Diagnosis (1) Schizoaffective disorder Status: Acute Interventions: 07/07/18 15:42 patient reported psychosis is improving, depression is also improving Patient tolerates medications well, no side effects observed or reported.
--- NOTE | 2018-07-07 15:52 | PCM.PYCHPN ---
Psychiatric Progress Note - Psychiatric Progress Note Patient seen today, length of contact: 25 min Patient Chief Complaint: "my mood improved from 07/28 to 05/27" Problems Identified/Issues Discussed: Suicide/ homicide prevention, past psychiatric h/o, current psychiatric symptoms , medical problems, risk/benefits and alternatives of medications, medications compliance, coping strategies, substance abuse h/o, relapse prevention, importance of follow up with psychiatrist and therapist, discharge plan. Medical Problems: see HPI Diagnostic Results: 06/28/18 18:20 06/28/18 18:20 Lab Results 06/30/18 07:15: RPR Nonreactive 06/30/18 07:15: Free T4 0.75 L, TSH 3rd Generation 2.61 06/30/18 07:15: Fasting Glucose 99, Triglycerides 313 H, Cholesterol 197, LDL Cholesterol Direct 111, HDL Cholesterol 39 06/29/18 17:28: POC Glucose (mg/dL) 110 06/28/18 19:20: Urine Opiates Screen Negative, Urine Methadone Screen Negative, Ur Barbiturates Screen Negative, Ur Phencyclidine Scrn Negative, Ur Amphetamines Screen Negative, U Benzodiazepines Scrn Negative, U Oth Cocaine Metabols Negative, U Cannabinoids Screen Negative 06/28/18 19:20: Urine Color Yellow, Urine Appearance Clear, Urine pH 6.0, Ur Specific [place] 1.020, Urine Protein Negative, Urine Glucose (UA) Negative, Urine Ketones Negative, Urine Blood Negative, Urine Nitrate Negative, Urine Bilirubin Negative, Urine Urobilinogen 0.2, Ur Leukocyte Esterase Negative 06/28/18 18:20: Alcohol, Quantitative 86 H 06/28/18 18:20: Salicylates < 1 L, Acetaminophen < 10.0 L 06/28/18 18:20: Sodium 142, Potassium 3.7, Chloride 107, Carbon Dioxide 23, Anion Gap 16, BUN 12, Creatinine 0.7 L, Est GFR ( Amer) > 60, Est GFR ( Non-Af Amer) > 60, Random Glucose 150 H, Calcium 9.1, Total Bilirubin 0.2, AST 22, ALT 41, Alkaline Phosphatase 43, Total Protein 6.7, Albumin 3.8, Globulin 2.9, Albumin/Globulin Ratio 1.3 06/28/18 18:20: WBC 9.1 D, RBC 4.39, Hgb 14.1, Hct 39.6 L, MCV 90.2, MCH 32.1, MCHC 35.6, RDW 13.0, Plt Count 223, MPV 8.7, Gran % 66.9, Lymph % (Auto) 24.3, [place] % (Auto) 5.3, Eos % (Auto) 2.7, Baso % (Auto) 0.8, Gran # 6.12, Lymph # ( Auto) 2.2, [place] # (Auto) 0.5, Eos # (Auto) 0.3, Baso # (Auto) 0.07 Vital Signs Temp Pulse Pulse Resp BP Pulse Ox 07/07/18 15:38 86 149/102 H 07/07/18 14:59 97.2 F L 07/07/18 07:00 97.6 F 84 20 144/86 07/06/18 16:00 81 127/78 07/06/18 07:00 98.7 F 85 17 133/86 07/05/18 15:00 92 H 18 144/100 H 07/05/18 07:04 97.5 F L 87 20 125/81 07/04/18 16:29 90 135/96 H 07/04/18 07:03 97.9 F 88 20 120/76 07/03/18 16:00 96 H 142/101 H 07/03/18 07:20 97.7 F 86 20 110/77 07/02/18 16:00 81 148/94 H 07/02/18 07:19 97.9 F 83 20 135/91 H 07/01/18 16:00 88 140/83 07/01/18 07:04 98 F 89 21 135/75 06/30/18 16:00 90 144/95 H 06/30/18 07:00 97.8 F 81 20 142/97 H 06/29/18 17:35 92 H 20 119/78 06/29/18 15:00 84 20 113/68 06/29/18 11:00 76 20 06/29/18 10:15 98.9 F 76 20 147/98 H 06/29/18 10:04 98.2 F 84 18 128/85 96 06/29/18 08:21 97.7 F 86 16 138/79 99 06/29/18 04:39 98.2 F 80 18 120/72 98 06/29/18 01:52 97.7 F 83 18 130/90 96 06/28/18 19:11 98 F 98 H 18 117/75 100 06/28/18 17:51 98.9 F 111 H 18 121/64 95 DSM 5 Symptoms Update: shortly as per 's assessment: patient is a single 47-year-old homeless white male with a history of multiple diagnoses including bipolar disorder, Severe Major Depression with psychotic features, schizoaffective disorder, numerous prior psychiatric admissions most recently at [facility] from May 24 to June 02, 2018, poor compliance with psychiatric outpatient follow-up as well as medications, history of at least two suicide temps, who presented to the ER on June 28, 2018 with symptoms of depression, suicidal thoughts to overdose as well as derogatory CAH telling him to kill himself. patient was seen and examined, discussed with the treatment team, nose reviewed, , medications reviewed. Patient was seen at the treatment team meeting, patient presented to this narrative writer to be "depressed, voices here and there". Patient reported that he is mood improved from 10 to 710, pt reported that he does not feel better, at the same time pt said voices are much better "just here and there", pt also said he has transient thoughts of killing self, but as per staff pt attends all the groups, affect is much brighter, treatment team raising concern about ? malingering, this narrative writer interacts with pt for the first day, needs at least 24 hr observation. moreover seroquel will be increased. Thought process is clear and coherent. He denies any current new discomfort or pain. Back pain persists but it is improving. He still needs motrin and tylenol on occasion for back aches. He doesn't appear to be in any physical distress during our interview and was informed of his negative xray results and that he was evaluated by two medical doctors for this complaint. Patient tolerates medications well, no side effects observed or reported, aims 0 , no EPS. Diagnostic Results: Mood Disorder NOS Psychosis NOS r/o MDD severe with psychotic features r/o Schizoaffective Disorder by hx Medication Change: No ( ) Medical Record Reviewed: Yes Consults ordered or reviewed: medical consultation appreciated. Mental Status Examination - Cognitive Function Orientation: Person, Place, Situation Memory: Intact Attention: WNL Concentration: WNL Association: WNL Fund of Knowledge: WNL - Mood Mood: Depressed, Anxious - Affect Affect: Constricted - Speech Speech: Soft - Formal Thought Process Formal Thought Process: Hallucinations ("here and there") - Suicidal Ideation Suicidal Ideation: No - Homicidal Ideation Homicidal Ideation: No Goal/Treatment Plan - Goal/Treatment Plan Need for Continued Stay: Remain at risks for inpatient hospitalization, Severe depression anxiety, Discharge may exacerbated symptoms, Severe functional impairment Progress Toward Problem(s) and Goals/Treatment Plan: Milieu/structure/supportive therapy Medical consult appreciated, see medical team note for more detailed info SW consultation for discharge plan and social issues Med management Seroquel 50 am 200mg hs for hallucinations and lability Wellbutrin XL 150 mg daily for depression Family involvement Follow up on labs Will monitor closely Pt was educated about risk/benefits and alternatives of medications, coping strategies (safety plan, suicide prevention), relapse prevention, importance of follow up with psychiatrist and therapist, stay away from drugs/alcohol/smoking Estimated Date of D/C: 07/08/18
[2018-07-08 07:19] VITALS: BP 115/81; PULSE 101; TEMP 97.8
[2018-07-08] MEDS: buPROPion 150 mg/24 Hours XL Tab PO SCH (09:07)
== END 2018-07-08 16:37 | disposition home or self-care (01) | DRG 885 ==
LOC: ED 17:14 → ERH 06-29 07:46 → PSYC 06-29 10:12
PROVIDERS: ADMIT Psychiatry & Neurology Psychiatry; ATTEND Psychiatry & Neurology Psychiatry
DX: F31.9 Bipolar disorder, unspecified (principal); R45.851 Suicidal ideations; F25.9 Schizoaffective disorder, unspecified; F39 Unspecified mood [affective] disorder; E78.00 Pure hypercholesterolemia, unspecified; I10 Essential (primary) hypertension; K59.00 Constipation, unspecified; R40.2412 Glasgow coma scale score 13-15, at arrival to emergency department; W01.0XXA Fall on same level from slipping, tripping and stumbling without subsequent striking against object, initial encounter; F17.210 Nicotine dependence, cigarettes, uncomplicated; Z91.14 Patient's other noncompliance with medication regimen; Z79.899 Other long term (current) drug therapy; Z82.3 Family history of stroke; Z82.49 Family history of ischemic heart disease and other diseases of the circulatory system; Y92.231 Patient bathroom in hospital as the place of occurrence of the external cause